=== PATIENT | male | born 1955 | race Caucasian/White ===

== ENCOUNTER 2020-06-10 17:20 | Outpatient (REF) | payer BC, SELFPAY | END 2020-06-10 17:21 | disposition home or self-care (01) | LOC: HO.LAB 17:20 | PROVIDERS: PCP Internal Medicine; Visit Provider Internal Medicine | DX: Z20.822 Contact with and (suspected) exposure to COVID-19 (principal); R09.89 Other specified symptoms and signs involving the circulatory and respiratory systems | CPT/HCPCS: 36415; U0003 ==

== ENCOUNTER 2021-06-09 09:17 | Outpatient (REF) | payer BC, SELFPAY ==
[2021-06-09 11:18] LABS: MANUAL DIFF FLAG NO
[2021-06-09 11:37] LABS: Basophils Percent Auto 0.3 % (0-2); Eosinophils Absolute Auto 0.1 X10*3/uL (0.0-0.4); Hematocrit 45.9 % (42.0-52.0); Hemoglobin 15.6 g/dl (14.0-18.0); Imm Gran Abs Auto 0.01 X10*3/uL (0.00-0.03); Imm Gran Pct Auto 0.1 % (0.0-0.4); Lymphocytes Absolute Auto 1.7 X10*3/uL (1.2-4.9); Lymphocytes Percent Auto 24.7 % (20-40); Mean Corpuscular Hemoglobin 32.4 pg (27.0-33.0); Mean Corpuscular Volume 95.4 fL (80.0-98.0); Mean Platelet Volume 10.5 fL (9.4-12.4); Monocytes Absolute Auto 0.7 X10*3/uL (0.1-1.2); Monocytes Percent Auto 10.3 % (2-11); Neutrophils Absolute Auto 4.4 x10*3/uL (2.0-8.3); Neutrophils Percent Auto 63.6 % (45-73); Platelet Count 258 X10*3/uL (160-400); Red Blood Count 4.81 X10*6/uL (4.60-5.80); Red Cell Distribution Width 11.6 % (11.0-16.0)
[2021-06-09 11:47] LABS: Alanine Aminotransferase 24 U/L (0-40); Albumin Level 4.2 g/dL (3.5-5.0); Alkaline Phosphatase 91 U/L (39-117); Anion Gap 11 (12-20); Aspartate Amino Transferase 21 U/L (5-37); Bilirubin Total 0.5 mg/dL (0.0-1.0); Blood Urea Nitrogen 12 mg/dL (9-16); Calcium 9.5 mg/dL (8.4-10.2); Carbon Dioxide 28 mmol/L (22-29); Chloride 104 mmol/L (96-108); Cholesterol 215 mg/dL; Estimated Glomerular Filt Rate > 60; Glucose Fasting 93 mg/dL (60-99); HDL Cholesterol 42 mg/dL; LDL Cholesterol Calculated 138 mg/dl; Potassium 4.2 mmol/L (3.3-5.1); Sodium 139 mmol/L (135-145); Triglycerides 176 mg/dL
[2021-06-09 12:13] LABS: Prostate Specific Antigen Scr 0.57 ng/mL (<0.05-4.0); Thyroid Stimulating Hormone 1.47 uIU/mL (0.32-4.0)
== END 2021-06-09 09:18 | disposition home or self-care (01) ==
LOC: HO.HMGCLDS 09:17
PROVIDERS: PCP Internal Medicine; Visit Provider Internal Medicine
DX: Z00.00 Encounter for general adult medical examination without abnormal findings (principal); Z13.0 Encounter for screening for diseases of the blood and blood-forming organs and certain disorders involving the immune mechanism; Z12.5 Encounter for screening for malignant neoplasm of prostate
CPT/HCPCS: 36415; 80053; 80061; 84153; 84443; 85025

== ENCOUNTER 2021-06-12 07:38 | Outpatient (REF) | payer BC, SELFPAY ==
--- NOTE | ~2021-06-12 | CT_ITS ---
EXAMINATION: CT HEAD WITHOUT CONTRAST CLINICAL INFORMATION: Amnesia. COMPARISON: None TECHNIQUE: Contiguous axial imaging was performed from the skull base to vertex without intravenous administration of contrast. This CT examination was performed using dose optimization techniques as appropriate, variously including the following: *Automated exposure control *Adjustment of mA and/or kV according to patient size (this includes techniques or standardized protocols for targeted exams where dose is matched to indication/reason for exam; i.e. extremities or head) *Use of iterative reconstruction technique DLP: 837 mGy-cm FINDINGS: There is no evidence of acute intracranial hemorrhage or territorial infarction. No abnormal mass effect or midline shift is seen. Leigh to white matter differentiation is well preserved. No extra-axial fluid collections are identified. The ventricles are normal in size. There is no abnormal attenuation within the brain parenchyma. The osseous structures and soft tissues are normal. The mastoid air cells and visualized portions of the paranasal sinuses are well aerated. CT/CT head/brain wo con IMPRESSION: No acute intracranial pathology.
== END 2021-06-12 07:39 | disposition home or self-care (01) ==
LOC: HO.CT 07:38
PROVIDERS: Visit Provider Internal Medicine
DX: R41.3 Other amnesia (principal)
CPT/HCPCS: 70450

== ENCOUNTER 2022-04-23 06:27 | Day surgery (SDC) | payer BC, SELFPAY ==
--- NOTE | 2022-04-20 10:54 | HO.ANESPROP2 ---
Documented by User: Miriam Wray NP 04/20/22 10:54 HPI - Anesthesia Eval Consult details Narrative: 66yo M for Colonoscopy PMFSH Active Problems Active Problems: All Active Problems (Updated 04/20/22 @ 10:46 by Farheen Baxter, GUEVARA) Memory loss (Acute) Lipoma (Acute) Hyperlipidemia (Acute) Hypertension (Acute) Past Medical History Medical History Eczema Hypertension Family History Family History Father Prostate cancer Mother Asthma Surgical History Surgical History H/O colonoscopy No pertinent past surgical history Social History Social History Housing: House Alcohol intake: never Patient Tobacco Use Status: Never used Tobacco e-Cigarette/Vaping Use: Never Used Second Hand Smoke Exposure: No Use of substances other than those prescribed or required for medical reasons: No Are you DNR?: No Advance Directives: No Advance Directives Information Provided: Yes service: No Current occupational status: retired Cognitive needs: No Hearing needs: No Vision needs: Yes Meds Allergies Allergy/AdvReac Type Severity Reaction Status Date / Time lisinopril Allergy Unknown face Verified 04/23/22 06:37 swelling Home Medications Medication Instructions Recorded Confirmed Last Taken Type dupilumab 300 mg/2 mL subcutaneous 300 mg subcut Q2W 05/03/20 04/23/22 Unknown History syringe (Dupixent) Exam Exam Date and Time: April 20, 2022 105 Assessment and Plan Assessment Anesthesia Assessment: Chart Reviewed Documented by User: Awilda Melvin MD 04/23/22 07:35 PMFSH Past Medical History Medical History Eczema Hypertension Family History Family History Father Prostate cancer Mother Asthma Surgical History Surgical History H/O colonoscopy No pertinent past surgical history History of Problems with Anesthesia: No Social History Social History Housing: House Alcohol intake: never Patient Tobacco Use Status: Never used Tobacco e-Cigarette/Vaping Use: Never Used Second Hand Smoke Exposure: No Use of substances other than those prescribed or required for medical reasons: No Are you DNR?: No Advance Directives: No Advance Directives Information Provided: Yes service: No Current occupational status: retired Cognitive needs: No Hearing needs: No Vision needs: Yes Meds Allergies Allergy/AdvReac Type Severity Reaction Status Date / Time lisinopril Allergy Unknown face Verified 04/23/22 06:37 swelling Home Medications Medication Instructions Recorded Confirmed Last Taken Type dupilumab 300 mg/2 mL subcutaneous 300 mg subcut Q2W 05/03/20 04/23/22 Unknown History syringe (Dup[employer]) Exam Airway Mallampati Class: II TM Dist: >3cm Neck ROM: Full Loose/Missing/Broken Teeth: No Heart: RRR Lungs: CTA Assessment and Plan Assessment Anesthesia Assessment: Anesthesia Plan Discussed Final Anesthetic Review History of Problems with Anesthesia: No NPO: Yes ASA Class: II Final Preanesthetic Review: Meds/Allgs Chart Reviewed, Consent Obtained/Reviewed and Anes Risks/Benef Reviewed Patient Risk: Low Procedure Risk: Low Anesthetic Plan Anesthetic Plan: MAC: Disposition: Standard PACU
[2022-04-23 06:35] VITALS: BMI 27.8
[2022-04-23 06:44] VITALS: BP 144/95; PULSE 61; RESP 16; TEMP 36.4; O2SAT 98
[2022-04-23] MEDS: Lactated Ringers 1,000 ML 100 ML IVCONT (06:53)
[2022-04-23 08:23] VITALS: BP 111/53; PULSE 52; RESP 20; TEMP 36.4; O2SAT 99
--- NOTE | 2022-04-23 08:26 | PM.OP ---
Brief Operative Note Date of Service: 04/23/22 Pre-op diagnosis: Screening Post-op diagnosis: other (Same, Diverticulosis) Procedure: Colonoscopy to the cecum and TI Surgeon: Isaac Grubbs Anesthesia: MAC Was an Executive Relations Specialist used for this Procedure?: No Estimated blood loss (mL): 0 Pathology: none sent Condition: stable Disposition: PACU
[2022-04-23 08:38] VITALS: BP 133/65; PULSE 55; RESP 18; TEMP 36.6; O2SAT 99
[2022-04-23 08:53] VITALS: BP 141/72; PULSE 50; RESP 18; TEMP 36.3; O2SAT 100
--- NOTE | 2022-04-23 09:14 | OP_ITS ---
SURGEON: Isaac Grubbs MD INDICATIONS: The patient presents for evaluation of colorectal cancer screening. Full consent has been obtained from him for this, including risks of bleeding and perforation. PREOPERATIVE DIAGNOSIS: Colorectal cancer screening. POSTOPERATIVE DIAGNOSIS: PROCEDURE PERFORMED: Colonoscopy to the cecum and terminal ileum. ESTIMATED BLOOD LOSS: COMPLICATIONS: ANESTHESIA: Monitored anesthesia care. ASSISTANTS: SPECIMENS: POSTOPERATIVE DIAGNOSES: Colorectal cancer screening, sigmoid diverticulosis, and small internal hemorrhoids. DESCRIPTION OF PROCEDURE: The patient was placed in the left lateral decubitus position. The digital rectal exam revealed no abnormalities. The Olympus video pediatric colonoscope was entered into the rectum and advanced easily to the cecum. Once in the cecum, I did identify normal-appearing cecal pouch with appendiceal orifice and a normal-appearing ileocecal valve. The terminal ileum was cannulated and appeared normal. The scope was withdrawn back in the colon. The entire cecum and ileocecal valve appeared normal. The scope was then slowly withdrawn assessing all mucosal surfaces carefully. Preparation was excellent. I did not visualize any sign of polyps, colitis, nor angiodysplasia. There was a mild amount of sigmoid diverticulosis. In the rectum, scope was retroflexed visualizing internal hemorrhoids, but no other pathology. The rectal mucosa appeared normal. The scope was straightened and withdrawn from the patient. He tolerated the procedure well and was returned to the recovery area in stable condition. IMPRESSION: 1. Mild sigmoid diverticulosis. 2. Small internal hemorrhoids. PLAN: Given today's negative exam, I would recommend a followup colonoscopy in 10 years for further screening. He will otherwise see me on a p.r.n. basis. MD LAM Ordonez/GLADYS / [id number]
== END 2022-04-23 09:23 | disposition home or self-care (01) ==
PROVIDERS: PCP Internal Medicine; Visit Provider Internal Medicine
PROC: 0DJD8ZZ Inspection of Lower Intestinal Tract, Via Natural or Artificial Opening Endoscopic (ICD-10-PCS; CPT 45378; principal; 2022-04-23 07:30)
DX: Z12.11 Encounter for screening for malignant neoplasm of colon (principal); K57.30 Diverticulosis of large intestine without perforation or abscess without bleeding; K64.8 Other hemorrhoids; L30.9 Dermatitis, unspecified; Z79.899 Other long term (current) drug therapy
CPT/HCPCS: 45378

== ENCOUNTER 2022-07-13 08:15 | Outpatient (REF) | payer BC, SELFPAY ==
[2022-07-13 10:34] LABS: MANUAL DIFF FLAG NO
[2022-07-13 10:45] LABS: Basophils Percent Auto 0.5 % (0-2); Eosinophils Absolute Auto 0.1 X10*3/uL (0.0-0.4); Eosinophils Percent Auto 0.9 % (0-4); Hematocrit 44.3 % (42.0-52.0); Hemoglobin 15.4 g/dl (14.0-18.0); Imm Gran Abs Auto 0.02 X10*3/uL (0.00-0.03); Imm Gran Pct Auto 0.2 % (0.0-0.4); Lymphocytes Absolute Auto 2.1 X10*3/uL (1.2-4.9); Lymphocytes Percent Auto 25.9 % (20-40); Mean Corpuscular HGB Conc 34.8 g/dl (31.0-36.0); Mean Corpuscular Hemoglobin 32.7 pg (27.0-33.0); Mean Corpuscular Volume 94.1 fL (80.0-98.0); Monocytes Absolute Auto 0.8 X10*3/uL (0.1-1.2); Monocytes Percent Auto 10.1 % (2-11); Neutrophils Absolute Auto 5.1 x10*3/uL (2.0-8.3); Neutrophils Percent Auto 62.4 % (45-73); Platelet Count 254 X10*3/uL (160-400); Red Blood Count 4.71 X10*6/uL (4.60-5.80); Red Cell Distribution Width 11.9 % (11.0-16.0); White Blood Count 8.2 X10*3/uL (4.8-10.8)
[2022-07-13 11:19] LABS: Alanine Aminotransferase 23 U/L (0-40); Albumin Level 3.9 g/dL (3.5-5.0); Alkaline Phosphatase 84 U/L (39-117); Anion Gap 10 (12-20); Aspartate Amino Transferase 19 U/L (5-37); Bilirubin Total 0.8 mg/dL (0.0-1.0); Blood Urea Nitrogen 14 mg/dL (9-16); Calcium 8.9 mg/dL (8.4-10.2); Carbon Dioxide 28 mmol/L (22-29); Chloride 107 mmol/L (96-108); Cholesterol 203 mg/dL; Estimated Glomerular Filt Rate > 60; Glucose Fasting 95 mg/dL (60-99); HDL Cholesterol 37 mg/dL; LDL Cholesterol Calculated 131 mg/dl; Sodium 141 mmol/L (135-145); Total Protein 6.5 g/dL (6.5-8.0); Triglycerides 178 mg/dL
[2022-07-13 11:22] LABS: Prostate Specific Antigen Scr 0.66 ng/mL (<0.05-4.0)
== END 2022-07-13 08:16 | disposition home or self-care (01) ==
LOC: HO.10HDL 08:15
PROVIDERS: Visit Provider Internal Medicine
DX: Z00.00 Encounter for general adult medical examination without abnormal findings (principal); E78.5 Hyperlipidemia, unspecified; N28.9 Disorder of kidney and ureter, unspecified; D64.9 Anemia, unspecified; Z12.5 Encounter for screening for malignant neoplasm of prostate
CPT/HCPCS: 36415; 80053; 80061; 84153; 85025

== ENCOUNTER → 2022-09-13 13:54 | Outpatient (BNVA) | payer BC, SELFPAY | PROVIDERS: PCP Internal Medicine; Referring Provider Internal Medicine; Visit Provider Internal Medicine Cardiovascular Disease | DX: R07.9 Chest pain, unspecified (principal); I44.7 Left bundle-branch block, unspecified | CPT/HCPCS: 93005 ==

== ENCOUNTER → 2022-10-04 09:49 | Outpatient (REF) | payer BC, SELFPAY ==
--- NOTE | ~2022-10-04 | NM_ITS ---
Myocardial perfusion study Indication: Chest pain to evaluate for myocardial ischemia Technique: The patient was brought in for a Lexiscan perfusion study on 10/04/2022. Patient performed low-level exercise and was injected 0.4 mg of Lexiscan intravenously. Within a minute of injection, 30 mCi of sestamibi was given intravenously. Images were obtained using the SPECT gamma camera interlaced with the gating device. Images were obtained in supine position. Resting perfusion study was performed on 10/05/2022. Patient was administered 30 mCi of sestamibi intravenously at rest. Images were then obtained in supine position. Images obtained with and without CT attenuation. Total DLP 84 mGy-cm. Images were processed with the software and compared side to side in short axis, horizontal long axis and vertical long axis views. Findings: The stress perfusion study showed non attenuated images show mildly reduced uptake in the septum of the LV myocardium. Remainder of the LV myocardium is normally perfused. Attenuation corrected images show mildly to moderately reduced uptake in the septum and mildly reduced uptake in the apex of the LV myocardium.. The gated study shows normal LV systolic function with calculated LVEF of 53%. LV cavity is normal in size. The gated study shows normal systolic wall thickening and contraction of segments. Resting study shows no change in perfusion pattern compared to stress perfusion study. Gating at rest reveals normal systolic wall motion with ejection fraction at 58%. The findings are consistent with no clear reversible defect suggestive of ischemia. Most suggestive attenuation artifact from subdiaphragmatic uptake interfering with inferior wall uptake. NM/NM abraham perf SPECT rest & str Impression: 1. Myocardial perfusion imaging study shows likely normal myocardial perfusion 2. Gated LVEF is 58% 3. Transient ischemic dilatation not present EKG is nondiagnostic for ischemia
--- NOTE | 2022-10-04 09:58 | CA_ITS ---
Acquisition Time: 2022-10-04 10:30:53 Total Exercise Time: 00:02:00 Test Indications: CP Medications: DUPEXENT SILDENAFIL Protocol: LEXISCAN Max HR: 100 BPM 64% of Pred: 155 BPM Max BP: 162/090 mmHG Max Work Load: 1.0 METS Pharmacological stress test with Lexiscan injection, while sitting and briefly kicking his legs , without anginal symptoms, with devleopment of LBBB around heart rate of 70 b/min, with normotensive response to injection, with nondiagnostic EKG for ischemia. Nuclear images pending. Test reviewed with Dr Liang . Referred By: Kyle Jacobo Overread By: AMBAR BARKER
== END ==
LOC: HO.CARD 09:49
PROVIDERS: PCP Internal Medicine; Visit Provider Internal Medicine Cardiovascular Disease
DX: R07.9 Chest pain, unspecified (principal)
CPT/HCPCS: 78452; 93017; A9500; J0280; J2785

== ENCOUNTER → 2022-11-06 14:44 | Outpatient (BNVA) | payer BC, SELFPAY | PROVIDERS: PCP Internal Medicine; Referring Provider Internal Medicine; Visit Provider Internal Medicine Cardiovascular Disease ==

== ENCOUNTER 2022-12-13 14:03 | Outpatient (AMB) | payer BC, SELFPAY ==
[2022-12-13 14:13] VITALS: BP 138/86; PULSE 68; O2SAT 98; BMI 27.8
--- NOTE | 2022-12-13 14:13 | A.OFFPC_ITS ---
Vital Signs 12/13/22 14:13 Height 5 ft 8 in Weight 183 lb BMI 27.8 BP 138/86 Blood Pressure Location Lt brachial Position Sitting Pulse 68 Pulse Source Pulse Oximeter Pulse Oximetry (%) 98 Oxygen Delivery Method Room Air Intake Visit Reasons: 5mth f/u Allergies lisinopril Allergy (Unknown, Verified 12/13/22 14:14) face swelling Tobacco use date assessed: 12/13/22 Fall risk assessment: No Falls in past year Last assessed Fall Risk: 12/13/22 Dental Screening Dental Screen Date: 12/13/22 Did you have a dental visit in the last 12 months?: Yes Did you have a dental problem in the last 6 months where you did not have access to dental care?: No Was dental information given to patient?: Patient has dentist HPI 5mth f/u HPI Details hyperlip on rx; seeing card re [facility] Medical History Eczema Hypertension Surgical History H/O colonoscopy No pertinent past surgical history Family History Father Prostate cancer Mother Asthma Social History Housing: House Alcohol intake: never Patient Tobacco Use Status: Never used Tobacco e-Cigarette/Vaping Use: Never Used Second Hand Smoke Exposure: No service: No Current occupational status: retired Cognitive needs: No Hearing needs: No Vision needs: Yes Questionnaire PHQ-9 Over the last 2 weeks, how often have you been bothered by any of the following problems? Depression Screening Interpretation: Negative Source: Developed by Drs. Isaac Clark, Zena Larson, Carmelo Bah and colleagues, with an educational maggie from [employer]. Thrive Questionnaire Date Thrive assessed: 05/31/22 Currently or been in a relationship where the following occur: no concerns reported AUDIT C Alcohol Use Questionnaire (AUDIT-C) 1. How often do you have a drink containing alcohol?: Never Total Score: 0 Score Reviewed/Action Taken: Yes MARIBELL-7 AMB Questionnaire MARIBELL-7 Date MARIBELL - 7 assessed: 05/31/22 Source: Developed by Drs. Isaac Clark, Zena Larson, Carmelo Bah and colleagues, with an educational maggie from [employer]. Review of Systems Const Denies chills, Denies headache(s) and Denies weight loss ENT Denies headache(s) Card Denies chest pain, Denies syncope, Denies irregular heart rhythm and Denies dyspnea Resp Denies chest congestion, Denies cough and Denies dyspnea GI Denies abdominal pain, Denies change in stool character, Denies nausea and Denies vomiting Musc Denies deformity and Denies joint swelling Neuro Denies syncope and Denies headache(s) Physical exam (Primary Care) Vital Signs: Last Vital Signs Pulse 68 12/13/22 14:13 BP 138/86 12/13/22 14:13 Pulse Ox 98 12/13/22 14:13 Oxygen Delivery Method Room Air 12/13/22 14:13 BMI result Body Mass Index 27.8 Tobacco/Smoking Status: Tobacco use Status Tobacco use date assessed 12/13/22 12/13/22 14:17 Patient Tobacco Use Status Never used Tobacco 12/13/22 14:14 e-Cigarette/Vaping Use Never Used 12/13/22 14:14 Depression Screening Interpretation: Negative Thrive Assessment: Date of Thrive Assessment Date Thrive assessed 05/31/22 12/13/22 14:14 Currently or been in a relationship where the following occur: no concerns reported Const General: cooperative, healthy appearing and comfortable Resp Effort & Inspection: normal respiratory effort Auscultation: clear to auscultation bilaterally Percussion: percussion normal Cardio Jugular venous distension: no JVD Rate: regular rate Rhythm: regular rhythm GI Inspection: Yes normal to inspection Assessment and Plan Assessment & Plan (1) Hyperlipidemia: Code(s): E78.5 - Hyperlipidemia, unspecified Plan: stable; same rx Coding Level of Care Code Est Pt Level 3 (64170) Diagnoses Hyperlipidemia E78.5
== END 2022-12-13 14:40 | disposition home or self-care (01) ==
PROVIDERS: PCP Internal Medicine; Visit Provider Internal Medicine
DX: E78.5 Hyperlipidemia, unspecified (principal)
CPT/HCPCS: 99213

== ENCOUNTER → 2022-12-31 14:46 | Outpatient (REF) | payer BC, SELFPAY ==
--- NOTE | 2022-12-31 14:49 | CA_ITS ---
Transthoracic Echocardiogram Patient (Last, First, Middle): Manny Granado, Gender: Male Date of : 1955 Age: 67 Procedure Date: 12/31/2022 Procedure Type: Transthoracic Echocardiogram Location: OP Height: 172.72 cm Weight: 81.65 kg BSA: 1.95 m2 Heart Rate: 60 bpm BP: 154 / 80 mmHg Dispatcher Radioactive Waste Disposal: RONAL Referring MD: Kyle Jacobo MD Rental Car Deliverer: Kyle Jacobo MD Symptoms: I44.7 - Left bundle-branch block, unspecified Study Quality: Adequate w contrast ECG Rhythm: Sinus Conclusions: - 1. Normal LV systolic function with impaired relaxation filling pattern 2. Trace aortic regurgitation 3. Mildly dilated ascending aorta at 3.8 cm 4. Normal RV systolic pressure 5. No gross pericardial effusion Findings Procedure Information Contrast agent, definity, is being given per protocol without apparent complications. Left Ventricle Normal left ventricular size, thickness, and systolic function. The visually estimated ejection fraction is between 65-70%. There is paradoxical septal motion consistent with a left bundle branch block. Spectral Doppler is indicative of an impaired relaxation filling pattern. E/E prime ratio is between 8 and 15 consistent with indeterminate filling pressures. Right Ventricle Normal right ventricular cavity size and systolic function. Atria Both atria are normal in size. There is lipomatous hypertrophy of the interatrial septum. There is no evidence of interatrial shunt. Aortic Valve The aortic valve structure and function is likely normal. There is mild calcification of the aortic valve. There is no aortic valve stenosis. There is trace (trivial) aortic valve regurgitation. Mitral Valve Normal mitral valve structure and function. There is trace mitral valve regurgitation. There is no mitral valve stenosis. Pulmonic Valve The pulmonic valve is likely normal. There is trace pulmonic valve regurgitation. Tricuspid Valve Normal tricuspid valve structure. There is trace tricuspid valve regurgitation. The right ventricular systolic pressure is normal. The right ventricular systolic pressure is 25 mmHg. Normal right atrial pressure. There is no evidence of pulmonary hypertension. Great Vessels The pulmonary artery was not well visualized. There is mild dilatation of the ascending aorta measuring 3.80 cm. Venous The inferior vena cava is normal in size and collapses greater than 50% with inspiration. Pericardium/Pleural There is no evidence of pericardial effusion. Prior Study Comparison No prior study available for comparison. Measurements 2D Linear Measurements IVSd: 1.21 0.6-0.9/0.6-1.0 cm LVIDd: 4.79 3.9-5.3/4.2-5.9 cm LVIDd Index: 2.46 2.4-3.2/2.2-3.1 cm/m2 LVIDs: 3.40 2.0-3.6 cm LVPWd: 0.82 0.7-1.1 cm LA Diam: 3.20 2.7-3.8/3.0-4.0 cm LAIDs Index: 1.64 1.5-2.3 cm/m2 LV Mass: 215.17 67-162/88-224 g LV Mass Index: 110.34 43-95/49-115 g/m2 LVOT Diam: 1.80 3.0+(-)1.3 cm 2D Systolic Function EF 4C: 64.30 >55% EF 2C: 77.70 >55% EF BiP: 71.50 >55% Mitral Valve MV Pk E: 0.89 MV PK A: 0.91 MV Decel Time: 237.00 E/A: 1.00 E'Lateral: 6.85 E'Medial: 4.90 E/E' Med: 18.20 E/E' Lat: 13.00 PHT: 69.00 MVA PHT: 3.19 Decel Bucks: 3.76 Aortic Valve AoV Pk Robinson: 1.82 AoV Mn Robinson: 1.25 AoV VTI: 0.39 AoV Pk Grad: 13.00 Aov Mn Grad: 7.00 KOLBY Cont.VTI: 1.76 LVOT LVOT Pk Robinson: 1.20 LVOT Mn Robinson: 0.86 LVOT VTI: 0.27 LVOT Pk Grad: 6.00 LVOT Mn Grad: 3.00 LVOT Diam: 1.80 LVOT Area: 2.54 Diastolic Function MV Pk E: 0.89 MV Pk A: 0.91 E/A: 1.00 E'Medial: 4.90 E/E' Med: 18.20 E' Laterial: 6.85 E/E' Lat: 13.00 Right Ventricle TAPSE (mm): 21.20 TVS' Robinson: 11.10 Tricuspid Valve TR Pk Robinson: 2.35 TR Pk Grad: 22.00 RA Press: 3.00 RVSP: 25.00 Great Vessels Aorta Sinus of Valsalva: 3.40 2.0-3.5 cm Ao Asc: 3.80 2.1-3.4 cm Pulmonary Veins Pulm Vein S/D 1.40 Pulmonary Valve PV Pk Robinson: 1.14 Peak PV Grad: 5.00 Updated in Other Vendor System with Status of Final Kyle Jacobo MD electronically signed on 12/31/2022 4:16:41 PM with status of Final
--- NOTE | 2022-12-31 14:49 | HM_ITS ---
Conclusion: 1. Patient was monitored for total period of 3 days 2. Baseline rhythm is normal sinus with average heart of 67 beats per minute 3. No significant pauses noted 4. Rare ectopy noted 5. No patient reported events MTDD
== END ==
LOC: HO.CARD 14:46
PROVIDERS: PCP Internal Medicine; Visit Provider Internal Medicine Cardiovascular Disease
DX: I44.7 Left bundle-branch block, unspecified (principal)
CPT/HCPCS: 93242; 93306; Q9957

== ENCOUNTER → 2022-12-31 14:49 | Outpatient (BNV) | payer BC, SELFPAY | PROVIDERS: PCP Internal Medicine; Visit Provider Internal Medicine Cardiovascular Disease | DX: I44.7 Left bundle-branch block, unspecified (principal); R07.9 Chest pain, unspecified | CPT/HCPCS: 93244; 93306 ==

== ENCOUNTER 2023-01-16 11:06 | Outpatient (AMB) | payer BC, SELFPAY ==
[2023-01-16 11:09] VITALS: BP 140/80; PULSE 66; BMI 27.5
--- NOTE | 2023-01-16 11:09 | MHC.OFFVIS ---
Intake Vital Signs 01/16/23 11:09 Height 5 ft 8 in Weight 180 lb 12.465 oz BMI 27.5 BP 140/80 H Blood Pressure Location Lt brachial Position Sitting Pulse 66 Intake Visit Reasons: 2 mth f/up testing calcium score Intake Note: 2 month follow-up with calcium score, echo and holter results Allergies lisinopril Allergy (Unknown, Verified 12/13/22 14:14) face swelling HPI HPI Comments History of Present Illness Details Manny comes for follow-up. Recent coronary calcium score shows presence of coronary calcium LAD and RCA territory suggestive underlying coronary artery disease. He has no new cardiac symptoms at current point time. Echocardiogram shows mild thoracic aortic enlargement at 3.8 cm. He is taking all his medication tolerating atorvastatin therapy. Denies any exertional chest pain or shortness of breath. PFSH Medical History Eczema Hypertension Surgical History H/O colonoscopy No pertinent past surgical history Family History Father Prostate cancer Mother Asthma Social History Housing: House Alcohol intake: never Patient Tobacco Use Status: Never used Tobacco e-Cigarette/Vaping Use: Never Used Second Hand Smoke Exposure: No service: No Current occupational status: retired Cognitive needs: No Hearing needs: No Vision needs: Yes Review of Systems Const Denies chills, Denies fatigue, Denies fever(s), Denies frequent falls, Denies weakness, Denies weight gain and Denies weight loss ENT Denies dizziness Card Denies chest pain, Denies leg edema, Denies lightheadedness, Denies palpitations, Denies dyspnea, Denies dyspnea on exertion, Denies orthopnea and Denies other (loss of consciousness) Resp Denies cough, Denies dyspnea and Denies dyspnea on exertion GI Denies hematochezia and Denies change in stool character Musc Denies abnormal gait, Denies muscle weakness, Denies numbness, Denies radiating pain into limb and Denies tingling Neuro Denies Abnormal speech present, Denies abnormal gait, Denies dizziness, Denies frequent falls, Denies numbness, Denies tingling and Denies weakness Endo Denies fatigue and Denies palpitations Physical Exam Vital Signs: Last Vital Signs Pulse 66 01/16/23 11:09 BP 140/80 H 01/16/23 11:09 BMI result Body Mass Index 27.5 Const General: cooperative, comfortable, no acute distress, well developed, alert, awake, Physically active and well groomed Nutritional Appearance: well nourished and overweight Orientation/consciousness: patient oriented x3 Limitations: no limitations Neck Neck: Yes trachea midline, Yes supple and Yes no JVD Resp Effort & Inspection: normal respiratory effort Auscultation: clear to auscultation bilaterally Cardio Jugular venous distension: no JVD Palpation: normal PMI Rate: regular rate Rhythm: regular rhythm Heart sounds: S1 normal heart sound present, S2 normal heart sound present, no click, no gallops, no murmurs and no rubs GI Auscultation: normal bowel sounds Neuro General: patient oriented x3 and no focal motor deficits Speech: No Abnormal speech present Psych Appearance: grossly normal Assessment & Plan Assessment & Plan (1) CAD (coronary artery disease): Code(s): I25.10 - Atherosclerotic heart disease of [place] coronary artery without angina pectoris Plan: CAD based of coronary calcium score. No symptoms related to it. Stress test was within normal limits. Echocardiogram shows normal LV systolic function. At this point in time continue with aggressive risk factor modification. Goal LDL less than 70 mg/dL. Advise lipid panel near future. Continue participate in regular physical activity and exercise program. Advised to call me with any new symptoms. (2) Enlarged thoracic aorta: Code(s): I77.89 - Other specified disorders of arteries and arterioles Plan: And last thoracic aorta also most likely suggestive atherosclerotic disease. Aggressive risk factor modifications above. We discussed management of her enlarged thoracic aorta. Follow-up echocardiogram in 1 year's time. Advised to avoid sudden strenuous isometric exercise. Manage blood pressure with goal blood pressure less than 130/84. He says that he also strong family history of abdominal aortic aneurysm in his father, will schedule him for abdominal ultrasound for ruling out abdominal aortic aneurysm. Follow up in the clinic 1 year's time, sooner p.r.n.. Thank you for allowing me to partake in his care Orders: Orders Lipid Panel Today I25.10 - Atherosclerotic heart disease of [place] coronary artery without angina pectoris Coding Level of Care Code Est Pt Level 4 (90373) Diagnoses CAD (coronary artery disease) I25.10 Enlarged thoracic aorta I77.89
== END 2023-01-16 11:30 | disposition home or self-care (01) ==
PROVIDERS: PCP Internal Medicine; Referring Provider Internal Medicine; Visit Provider Internal Medicine Cardiovascular Disease
DX: I25.10 Atherosclerotic heart disease of native coronary artery without angina pectoris (principal); I77.89 Other specified disorders of arteries and arterioles
CPT/HCPCS: 99214

== ENCOUNTER → 2023-01-16 11:06 | Outpatient (BNVA) | payer BC, SELFPAY | PROVIDERS: PCP Internal Medicine; Referring Provider Internal Medicine; Visit Provider Internal Medicine Cardiovascular Disease ==

== ENCOUNTER 2023-01-31 14:59 | Outpatient (REF) | payer BC, SELFPAY ==
--- NOTE | ~2023-01-31 | US_ITS ---
EXAMINATION: US RETROPERITONEAL LIMITED (AORTA) CLINICAL INFORMATION: Atherosclerotic heart disease of [place] coronary artery without angina pectoris. COMPARISON: None available. TECHNIQUE: Leigh-scale, color Doppler and spectral Doppler evaluation of the abdominal aorta. FINDINGS: The aorta is normal in caliber. The measurements of the aorta in maximum AP and transverse dimensions respectively are as follows: Proximal: 2.6 x 3.0 cm. Mid: 1.8 x 1.7 cm. Distal: 1.7 x 1.8 cm. PSV: 162 cm/s. The measurements of the common iliac arteries in maximum AP and TRV dimensions are as follows: Right Common Iliac Artery: 1.4 x 1.4 cm. Left Common Iliac Artery: 1.2 x 1.2 cm. US/US abdominal aortic aneurysm IMPRESSION: Negative for abdominal aortic aneurysm.
== END 2023-01-31 15:00 | disposition home or self-care (01) ==
LOC: HO.US 14:59
PROVIDERS: Visit Provider Internal Medicine Cardiovascular Disease
DX: I25.10 Atherosclerotic heart disease of native coronary artery without angina pectoris (principal)
CPT/HCPCS: 76706

== ENCOUNTER 2023-03-22 09:04 | Outpatient (REF) | payer BC, SELFPAY ==
[2023-03-22 11:00] LABS: Cholesterol 133 mg/dL (<200); HDL Cholesterol 40 mg/dL (>40); LDL Cholesterol Calculated 68 mg/dL (<100); Triglycerides 128 mg/dL (<150)
== END 2023-03-22 09:05 | disposition home or self-care (01) ==
LOC: HO.10HDL 09:04
PROVIDERS: Visit Provider Internal Medicine Cardiovascular Disease
DX: R07.9 Chest pain, unspecified (principal); E78.5 Hyperlipidemia, unspecified
CPT/HCPCS: 36415; 80061

== ENCOUNTER 2023-05-08 13:22 | Outpatient (AMB) | payer BC, SELFPAY ==
[2023-05-08 13:23] VITALS: BP 140/82; PULSE 60; O2SAT 98; BMI 28.0
--- NOTE | 2023-05-08 13:23 | MHC.PC.OV ---
Vital Signs 05/08/23 13:23 Height 5 ft 8 in Weight 184 lb BMI 28.0 BP 140/82 H Blood Pressure Location Lt brachial Position Sitting Pulse 60 Pulse Source Pulse Oximeter Pulse Oximetry (%) 98 Oxygen Delivery Method Room Air Intake Visit Reasons: 6 month f/u Sales Associate Required: No Systems Security Consultant: Not Required per policy Accompanied by: Self / Same As Patient Allergies lisinopril Allergy (Unknown, Verified 05/08/23 13:24) face swelling Medication List - Last Reconciled 05/08/23 by Atif Cueto MD atorvastatin 20 mg PO DAILY dupilumab (Dupixent) 300 mg subcut Q2W Tobacco use date assessed: 12/13/22 Fall risk assessment: No Falls in past year Last assessed Fall Risk: 05/08/23 Dental Screening Dental Screen Date: 05/08/23 Did you have a dental visit in the last 12 months?: Yes Did you have a dental problem in the last 6 months where you did not have access to dental care?: No Was dental information given to patient?: Patient has dentist HPI 6 month f/u HPI Details HTN on Rx; doing well PFSH Medical History Eczema Hypertension Surgical History H/O colonoscopy No pertinent past surgical history Family History Father Prostate cancer Mother Asthma Social History Housing: House Alcohol intake: never Patient Tobacco Use Status: Never used Tobacco e-Cigarette/Vaping Use: Never Used Second Hand Smoke Exposure: No service: No Current occupational status: retired Cognitive needs: No Hearing needs: No Vision needs: Yes Questionnaire Thrive Questionnaire Date Thrive assessed: 05/31/22 MARIBELL-7 AMB Questionnaire MARIBELL-7 Date MARIBELL - 7 assessed: 05/31/22 Source: Developed by Drs. Isaac Clark, Zena Larson, Carmelo Bah and colleagues, with an educational maggie from [employer]. Review of Systems Const Denies chills, Denies headache(s) and Denies weight loss ENT Denies headache(s) Card Denies chest pain, Denies syncope, Denies irregular heart rhythm and Denies dyspnea Resp Denies chest congestion, Denies cough and Denies dyspnea GI Denies abdominal pain, Denies change in stool character, Denies nausea and Denies vomiting Musc Denies deformity and Denies joint swelling Neuro Denies syncope and Denies headache(s) Physical exam (Primary Care) Vital Signs: Last Vital Signs Pulse 60 05/08/23 13:23 BP 140/82 H 05/08/23 13:23 Pulse Ox 98 05/08/23 13:23 Oxygen Delivery Method Room Air 05/08/23 13:23 BMI result Body Mass Index 28.0 Tobacco/Smoking Status: Tobacco use Status Tobacco use date assessed 12/13/22 05/08/23 13:29 Patient Tobacco Use Status Never used Tobacco 05/08/23 13:29 e-Cigarette/Vaping Use Never Used 05/08/23 13:29 Thrive Assessment: Date of Thrive Assessment Date Thrive assessed 05/31/22 05/08/23 13:29 Const General: cooperative, comfortable, no acute distress and alert Neck Neck: Yes no lymphadenopathy Thyroid: Thyroid normal Resp Effort & Inspection: normal respiratory effort Auscultation: clear to auscultation bilaterally Percussion: percussion normal Cardio Jugular venous distension: no JVD Palpation: normal PMI Rate: regular rate Rhythm: regular rhythm Heart sounds: S1 normal heart sound present and S2 normal heart sound present GI Inspection: Yes normal to inspection Palpation (GI): No hepatosplenomegaly present Skin General skin exam: no rashes or lesions noted Extrem General: Yes no clubbing, cyanosis or edema Assessment and Plan Assessment & Plan (1) Hypertension: Code(s): I10 - Essential (primary) hypertension Plan: stable; same rx Orders: Orders Complete Blood Count Auto Diff Today D64.9 - Anemia, unspecified Lipid Panel Today E78.5 - Hyperlipidemia, unspecified Thyroid Stimulating Hormone Today E03.9 - Hypothyroidism, unspecified Comprehensive [place]. Panel Fast Today N28.9 - Disorder of kidney and ureter, unspecified Prostate Specific Antigen Scr Today Z00.00 - Encounter for general adult medical examination without abnormal findings Coding Level of Care Code Est Pt Level 3 (56576) Diagnoses Hypertension I10
== END 2023-05-08 14:29 | disposition home or self-care (01) ==
PROVIDERS: PCP Internal Medicine; Visit Provider Internal Medicine
DX: I10 Essential (primary) hypertension (principal)
CPT/HCPCS: 99213

== ENCOUNTER 2023-09-02 12:35 | Outpatient (REF) | payer MEDICARE, SELFPAY ==
[2023-09-02 12:54] LABS: MANUAL DIFF FLAG NO
[2023-09-02 13:09] LABS: Basophils Percent Auto 0.4 % (0-2); Eosinophils Absolute Auto 0.1 X10*3/uL (0.0-0.4); Eosinophils Percent Auto 0.7 % (0-4); Hematocrit 42.2 % (42.0-52.0); Hemoglobin 15.2 g/dl (14.0-18.0); Imm Gran Abs Auto 0.01 X10*3/uL (0.00-0.03); Imm Gran Pct Auto 0.1 % (0.0-0.4); Lymphocytes Percent Auto 30.4 % (20-40); Mean Corpuscular Hemoglobin 33.5 pg (27.0-33.0); Mean Platelet Volume 9.9 fL (9.4-12.4); Monocytes Absolute Auto 0.7 X10*3/uL (0.1-1.2); Monocytes Percent Auto 10.5 % (2-11); Neutrophils Absolute Auto 3.9 x10*3/uL (2.0-8.3); Neutrophils Percent Auto 57.9 % (45-73); Platelet Count 226 X10*3/uL (160-400); Red Blood Count 4.54 X10*6/uL (4.60-5.80); Red Cell Distribution Width 11.9 % (11.0-16.0); White Blood Count 6.7 X10*3/uL (4.8-10.8)
[2023-09-02 13:49] LABS: Alanine Aminotransferase 21 U/L (0-40); Alkaline Phosphatase 83 U/L (39-117); Anion Gap 9 (12-20); Aspartate Amino Transferase 18 U/L (5-37); Bilirubin Total 0.7 mg/dL (0.0-1.0); Blood Urea Nitrogen 13 mg/dL (9-16); Calcium 9.3 mg/dL (8.4-10.2); Carbon Dioxide 27 mmol/L (22-29); Chloride 108 mmol/L (96-108); Cholesterol 135 mg/dL (<200); Estimated Glomerular Filt Rate > 60; Glucose Fasting 91 mg/dL (60-99); HDL Cholesterol 43 mg/dL (>40); LDL Cholesterol Calculated 66 mg/dL (<100); Potassium 4.1 mmol/L (3.3-5.1); Sodium 140 mmol/L (135-145); Total Protein 6.8 g/dL (6.5-8.0); Triglycerides 133 mg/dL (<150)
[2023-09-02 14:03] LABS: Prostate Specific Antigen Scr 0.61 ng/mL (<0.05-4.0)
[2023-09-02 14:04] LABS: Thyroid Stimulating Hormone 1.06 uIU/mL (0.32-4.0)
== END 2023-09-02 12:36 | disposition home or self-care (01) ==
LOC: HO.LAB 12:35
PROVIDERS: PCP Internal Medicine; Visit Provider Internal Medicine
DX: Z00.00 Encounter for general adult medical examination without abnormal findings (principal); E03.9 Hypothyroidism, unspecified; E78.5 Hyperlipidemia, unspecified; N28.9 Disorder of kidney and ureter, unspecified; D64.9 Anemia, unspecified; Z12.5 Encounter for screening for malignant neoplasm of prostate
CPT/HCPCS: 36415; 80053; 80061; 84153; 84443; 85025

== ENCOUNTER 2023-09-09 14:09 | Outpatient (AMB) | payer OTHER, SELFPAY ==
[2023-09-09 14:16] VITALS: BP 152/98; PULSE 68; O2SAT 98; BMI 28.3
--- NOTE | 2023-09-09 14:16 | MHC.PC.OV ---
Vital Signs 09/09/23 14:16 Height 5 ft 8 in Weight 186 lb BMI 28.3 BP 152/98 H Blood Pressure Location Lt brachial Position Sitting Pulse 68 Pulse Source Pulse Oximeter Pulse Oximetry (%) 98 Oxygen Delivery Method Room Air Intake Visit Reasons: 3mth f/u Tar And Ammonia Pump Operator Required: No Casket Coverer: Not Required per policy Accompanied by: Self / Same As Patient Allergies lisinopril Allergy (Unknown, Verified 09/09/23 14:16) face swelling Medication List - Last Reconciled 09/10/23 by Atif Cueto MD amlodipine 5 mg PO DAILY atorvastatin 20 mg PO DAILY dupilumab (Dupixent) 300 mg subcut Q2W Tobacco use date assessed: 09/09/23 Fall risk assessment: No Falls in past year Last assessed Fall Risk: 09/09/23 Dental Screening Dental Screen Date: 09/09/23 Did you have a dental visit in the last 12 months?: Yes Did you have a dental problem in the last 6 months where you did not have access to dental care?: No Was dental information given to patient?: Patient has dentist HPI 3mth f/u HPI Details HTN on Rx; BP has been 150s lately PFSH Medical History Eczema Hypertension Surgical History H/O colonoscopy No pertinent past surgical history Family History (Updated 09/09/23 @ 14:22 by CHELSEA Mitchell) Father Prostate cancer Mother Asthma Social History Housing: House Alcohol intake: never Patient Tobacco Use Status: Never used Tobacco e-Cigarette/Vaping Use: Never Used Second Hand Smoke Exposure: No service: No Current occupational status: retired Cognitive needs: No Hearing needs: No Vision needs: Yes Questionnaire PHQ-9 Over the last 2 weeks, how often have you been bothered by any of the following problems? 1. Little interest or pleasure in doing things: not at all 2. Feeling down, depressed, or hopeless: not at all 3. Trouble falling or staying asleep, or sleeping too much: not at all 4. Feeling tired or having little energy: not at all 5. Poor appetite or overeating: not at all 6. Feeling bad about yourself - or that you are a failure or have let yourself or your family down: not at all 7. Trouble concentrating on things, such as reading the newspaper or watching television: not at all 8. Moving or speaking so slowly that other people could have noticed. Or the opposite - being so fidgety or restless that you have been moving around a lot more than usual: not at all 9. Thoughts that you would be better off or of hurting yourself in some way: not at all Total score: 0 Depression Screening Interpretation: Negative Depression Screening Done: Yes 54285 - PHQ-9 Billing: Yes Source: Developed by Drs. Isaac Clark, Zena Larson, Carmelo Bah and colleagues, with an educational maggie from [employer]. Thrive Questionnaire Date Thrive assessed: 09/09/23 I am a: Patient What is your living situation today?: I have a steady place to live Within the past 12 months, did the food you bought not last and you didn't have the money to get more?: Never true Within the past 12 months, did you worry whether your food would run out before you got money to buy more?: Never true Do you have trouble paying for medicines?: No Do you have trouble getting transportation to medical appointments?: No Do you have trouble paying your heating and electricity bill?: No Do you have trouble taking care of your child, family member or friend?: No Do you have trouble with day-to-day activities such as bathing, preparing meals, shopping, managing finances, etc.?: No Are you currently unemployed and looking for a job?: No Are you interested in more education?: No Please select the resources that you would like help with: None THRIVE Score: 0 AUDIT C Alcohol Use Questionnaire (AUDIT-C) 1. How often do you have a drink containing alcohol?: Never Total Score: 0 Score Reviewed/Action Taken: Yes MARIBELL-7 AMB Questionnaire MARIBELL-7 Date MARIBELL - 7 assessed: 09/09/23 Feeling nervous, anxious, or on edge: 0 = Not at all Not being able to stop or control worryin = Not at all Worrying too much about different things: 0 = Not at all Trouble relaxin = Not at all Being so restless that it is hard to sit still: 0 = Not at all Becoming easily annoyed or irritable: 0 = Not at all Feeling afraid as if something awful might happen: 0 = Not at all Total MARIBELL-7 score (0-4 normal; 5-9 mild; 10-14 moderate; 15-21 severe): 0 Source: Developed by Drs. Isaac Clark, Zena Larson, Carmelo Bah and colleagues, with an educational maggie from [employer]. MARIBELL-7 Assessment Billing MARIBELL-7 Assessment Tool: MARIBELL-7 Assessment 94684 Review of Systems Const Denies chills, Denies headache(s) and Denies weight loss ENT Denies headache(s) Card Denies chest pain, Denies syncope, Denies irregular heart rhythm and Denies dyspnea Resp Denies chest congestion, Denies cough and Denies dyspnea GI Denies abdominal pain, Denies change in stool character, Denies nausea and Denies vomiting Musc Denies deformity and Denies joint swelling Neuro Denies syncope and Denies headache(s) Physical exam (Primary Care) Vital Signs: Last Vital Signs Pulse 68 09/09/23 14:16 BP 152/98 H 09/09/23 14:16 Pulse Ox 98 09/09/23 14:16 Oxygen Delivery Method Room Air 09/09/23 14:16 BMI result Body Mass Index 28.3 Tobacco/Smoking Status: Tobacco use Status Tobacco use date assessed 09/09/23 09/09/23 14:18 Patient Tobacco Use Status Never used Tobacco 09/09/23 14:18 e-Cigarette/Vaping Use Never Used 09/09/23 14:18 PHQ-9: PHQ-9 Score PHQ-9: Total score 0 09/09/23 14:18 Depression Screening Interpretation: Negative Thrive Assessment: Date of Thrive Assessment Date Thrive assessed 09/09/23 09/09/23 14:18 Const General: cooperative, comfortable, no acute distress and alert Neck Neck: Yes no lymphadenopathy Thyroid: Thyroid normal Resp Effort & Inspection: normal respiratory effort Auscultation: clear to auscultation bilaterally Percussion: percussion normal Cardio Jugular venous distension: no JVD Palpation: normal PMI Rate: regular rate Rhythm: regular rhythm Heart sounds: S1 normal heart sound present and S2 normal heart sound present GI Inspection: Yes normal to inspection Palpation (GI): No hepatosplenomegaly present Skin General skin exam: no rashes or lesions noted Extrem General: Yes no clubbing, cyanosis or edema Assessment and Plan Assessment & Plan (1) Hypertension: Code(s): I10 - Essential (primary) hypertension Plan: was on rx in the past; will reume rx now Medications: New amlodipine 5 mg PO DAILY 30 tabs 5RF Coding Level of Care Code Est Pt Level 3 (22197) Diagnoses Hypertension I10 Additional Codes MARIBELL-7 Assessment Billing - MARIBELL-7 Assessment Tool: MARIBELL-7 Assessment 09262 ([id number])
== END 2023-09-09 15:35 | disposition home or self-care (01) ==
PROVIDERS: PCP Internal Medicine; Visit Provider Internal Medicine
DX: I10 Essential (primary) hypertension (principal)
CPT/HCPCS: 99213

== ENCOUNTER 2023-09-30 15:21 | Outpatient (AMB) | payer OTHER, SELFPAY ==
--- NOTE | 2023-09-30 15:23 | A.OFFVIS_ITS ---
Vital Signs 09/30/23 15:24 Height 5 ft 8 in Weight 187 lb 6.287 oz BMI 28.5 BP 120/70 Blood Pressure Location Lt brachial Position Sitting Pulse 74 Intake Visit Reasons: follow-up patient want sooner away for the summer Intake Note: Follow-up with ekg feelling good Clinical Product Specialist Required: No Allergies lisinopril Allergy (Unknown, Verified 09/09/23 14:16) face swelling Medication List - Last Reconciled 09/30/23 by Kyle Jacobo MD amlodipine 5 mg PO DAILY atorvastatin 20 mg PO DAILY dupilumab (Dupixent) 300 mg subcut Q2W HPI Comments Details: Manny comes for a more sooner appointment as he is planning to travel to [place] for many months. He continues to have no significant symptoms. Says has mild exertional shortness of breath but thinks this is related to some weight gain. Denies any exertional chest pain. Takes all his medications. His LDL is well optimized. He said his blood pressure at home is generally on the higher side although manage her blood pressure today is within normal limits. No reliable home monitoring of blood pressure at this point in time. [facility] Medical History Eczema Hypertension Surgical History H/O colonoscopy No pertinent past surgical history Family History Father Prostate cancer Mother Asthma Social History Housing: House Alcohol intake: never Patient Tobacco Use Status: Never used Tobacco e-Cigarette/Vaping Use: Never Used Second Hand Smoke Exposure: No service: No Current occupational status: retired Cognitive needs: No Hearing needs: No Vision needs: Yes Review of Systems Const Denies chills, Denies fatigue, Denies fever(s), Denies frequent falls, Denies weakness, Denies weight gain and Denies weight loss ENT Denies dizziness Card Denies chest pain, Denies leg edema, Denies lightheadedness, Denies palpitations, Denies dyspnea, Denies dyspnea on exertion, Denies orthopnea and Denies other (loss of consciousness) Resp Denies cough, Denies dyspnea and Denies dyspnea on exertion GI Denies hematochezia and Denies change in stool character Musc Denies abnormal gait, Denies muscle weakness, Denies numbness, Denies radiating pain into limb and Denies tingling Neuro Denies Abnormal speech present, Denies abnormal gait, Denies dizziness, Denies frequent falls, Denies numbness, Denies tingling and Denies weakness Endo Denies fatigue and Denies palpitations Physical Exam Vital Signs: Last Vital Signs Pulse 74 09/30/23 15:24 BP 120/70 09/30/23 15:24 BMI result Body Mass Index 28.5 Const General: cooperative, comfortable, no acute distress, well developed, alert, awake, Physically active and well groomed Nutritional Appearance: well nourished and overweight Orientation/consciousness: patient oriented x3 Limitations: no limitations Neck Neck: Yes trachea midline, Yes supple and Yes no JVD Resp Effort & Inspection: normal respiratory effort Auscultation: clear to auscultation bilaterally Cardio Jugular venous distension: no JVD Palpation: normal PMI Rate: regular rate Rhythm: regular rhythm Heart sounds: S1 normal heart sound present, S2 normal heart sound present, no click, no gallops, no murmurs and no rubs GI Auscultation: normal bowel sounds Neuro General: patient oriented x3 and no focal motor deficits Speech: No Abnormal speech present Psych Appearance: grossly normal Office Procedures EKG Details: EKG shows normal sinus rhythm with left bundle-branch block at 74 beats per minute [id number], Complete Assessment & Plan Assessment & Plan (1) CAD (coronary artery disease): Code(s): I25.10 - Atherosclerotic heart disease of [place] coronary artery without angina pectoris Category: Medical Plan: CAD based on coronary calcium score in the LAD and RCA territory on CT scan. C urrently having no symptoms suggestive of ischemia. No further workup is indicated at this point in time except for continued medical therapy. Continue aggressive vascular risk factor modification. LDL is well optimized on current statin therapy. Blood pressure seemed to be well optimized as well on current medications. Advised to monitor blood pressure manual check of blood pressure at home intermittently and maintain a log. Low-salt diet was discussed. Stress mitigation strategies was discussed as well. (2) Enlarged thoracic aorta: Code(s): I77.89 - Other specified disorders of arteries and arterioles Category: Medical Plan: Mildly enlarged thoracic aorta without any symptoms related to it. Follow-up echocardiogram in 4-5 months time to assess for size. Continue aggressive vascular risk factor modification above. Goal blood pressure less than 130/84 at all times. (3) Left bundle branch block: Code(s): I44.7 - Left bundle-branch block, unspecified Category: Medical Plan: Left bundle-branch block which is stable. No interventions required per se for the same. Follow-up echocardiogram as above as 1 in 6 patient can develop cardiomyopathy related to left bundle-branch block. Continue vascular risk factor modification. Will follow up in the clinic in 1 year's time, sooner p.r.n.. Thank you for allowing me to partake in his care Orders: Orders CA echo transthoracic complete 18 Weeks I77.89 - Other specified disorders of arteries and arterioles Coding Level of Care Code Est Pt Level 4 (23160) Diagnoses CAD (coronary artery disease) I25.10 Enlarged thoracic aorta I77.89 Left bundle branch block I44.7 CPT Codes EKG - CPT: 75039-[id number], Complete ([id number])
[2023-09-30 15:24] VITALS: BP 120/70; PULSE 74; BMI 28.5
== END 2023-09-30 15:54 | disposition home or self-care (01) ==
PROVIDERS: PCP Internal Medicine; Visit Provider Internal Medicine Cardiovascular Disease
DX: I25.10 Atherosclerotic heart disease of native coronary artery without angina pectoris (principal); I77.89 Other specified disorders of arteries and arterioles; I44.7 Left bundle-branch block, unspecified
CPT/HCPCS: 93010; 99214

== ENCOUNTER → 2023-09-30 15:21 | Outpatient (BNVA) | payer OTHER, SELFPAY | PROVIDERS: PCP Internal Medicine; Visit Provider Internal Medicine Cardiovascular Disease | DX: I25.10 Atherosclerotic heart disease of native coronary artery without angina pectoris (principal); I77.89 Other specified disorders of arteries and arterioles; I44.7 Left bundle-branch block, unspecified; Z79.899 Other long term (current) drug therapy | CPT/HCPCS: 93005 ==

== ENCOUNTER → 2024-02-14 14:45 | Outpatient (REF) | payer OTHER, SELFPAY ==
--- NOTE | 2024-02-14 14:48 | CA_ITS ---
Transthoracic Echocardiogram Patient (Last, First, Middle): Manny Granado, Gender: Male Date of : 1955 Age: 68 Procedure Date: 02/14/2024 Procedure Type: Transthoracic Echocardiogram Location: OP Height: 172. cm Weight: 80.74 kg BSA: 1.94 m2 Heart Rate: 66 bpm BP: 170 / 90 mmHg Housing Grant Analyst: NEERAJ Referring MD: Kyle Jacobo MD Symptoms: I77.89 - Other specified disorders of arteries and arterioles Study Quality: Adequate ECG Rhythm: Sinus Conclusions: - The left ventricular systolic function is normal. The calculated ejection fraction is 62% by biplane method. - No obvious valvular pathology seen on this study. - There is mild dilatation of the ascending aorta measuring 4.10 cm (but margins not clearly defined). Findings Left Ventricle Normal left ventricular cavity size. There is mildly increased left ventricular wall thickness. The left ventricular systolic function is normal. The calculated ejection fraction is 62% by biplane method. There is no evidence of regional wall motion abnormalities. There is paradoxical septal motion consistent with a left bundle branch block. Evidence suggests grade I (mild) diastolic dysfunction. LV peak GLS -14.4%. Right Ventricle Normal right ventricular cavity size and systolic function. Atria Both atria are normal in size. Aortic Valve There is a normal trileaflet aortic valve. There is mild calcification of the aortic valve. There is no aortic valve stenosis. There is trace (trivial) aortic valve regurgitation. Mitral Valve The mitral valve appears normal. There is no mitral valve regurgitation. There is no mitral valve stenosis. Pulmonic Valve The pulmonic valve is likely normal. Tricuspid Valve There is trace tricuspid valve regurgitation. There is no evidence of pulmonary hypertension. Great Vessels The aortic arch is normal in size. There is mild dilatation of the ascending aorta measuring 4.10 cm. Venous The inferior vena cava is normal in size and collapses greater than 50% with inspiration. Pericardium/Pleural There is no evidence of pericardial effusion. Prior Study Comparison Changes noted compared to prior study dated: 12/31/2022. change in ascending aortic size (could also be technical). Recommendations, Care & Conclusions No obvious valvular pathology seen on this study. Measurements 2D Linear Measurements IVSd: 1.34 0.6-0.9/0.6-1.0 cm LVIDd: 4.63 3.9-5.3/4.2-5.9 cm LVIDd Index: 2.39 2.4-3.2/2.2-3.1 cm/m2 LVIDs: 3.50 2.0-3.6 cm LVPWd: 1.23 0.7-1.1 cm LA Diam: 3.10 2.7-3.8/3.0-4.0 cm LAIDs Index: 1.60 1.5-2.3 cm/m2 LV Mass: 284.95 67-162/88-224 g LV Mass Index: 146.88 43-95/49-115 g/m2 LVOT Diam: 2.00 3.0+(-)1.3 cm 2D Systolic Function EF 4C: 50.40 >55% EF 2C: 70.70 >55% EF BiP: 61.80 >55% Mitral Valve MV Pk E: 0.80 MV PK A: 1.15 MV Decel Time: 280.00 E/A: 0.70 E'Lateral: 7.07 E'Medial: 4.46 E/E' Med: 18.00 E/E' Lat: 11.40 PHT: 82.00 MVA PHT: 2.68 Decel Rains: 2.88 Aortic Valve AoV Pk Robinson: 1.85 AoV Mn Robinson: 1.28 AoV VTI: 0.38 AoV Pk Grad: 14.00 Aov Mn Grad: 8.00 KOLBY Cont.VTI: 1.92 LVOT LVOT Pk Robinson: 1.21 LVOT Mn Robinson: 0.81 LVOT VTI: 0.23 LVOT Pk Grad: 6.00 LVOT Mn Grad: 3.00 LVOT Diam: 2.00 LVOT Area: 3.14 Diastolic Function MV Pk E: 0.80 MV Pk A: 1.15 E/A: 0.70 E'Medial: 4.46 E/E' Med: 18.00 E' Laterial: 7.07 E/E' Lat: 11.40 Right Ventricle TAPSE (mm): 25.80 TVS' Robinson: 10.10 Tricuspid Valve RA Press: 3.00 Great Vessels Aorta Sinus of Valsalva: 3.70 2.0-3.5 cm Ao Asc: 4.10 2.1-3.4 cm Ao Arch: 2.70 Pulmonary Valve PV Pk Robinson: 1.07 Peak PV Grad: 5.00 Updated in Other Vendor System with Status of Final Efra Villasenor MD electronically signed on 02/16/2024 10:59:32 AM with status of Final
== END ==
LOC: HO.CARD 14:45
PROVIDERS: PCP Internal Medicine; Visit Provider Internal Medicine Cardiovascular Disease
DX: I77.89 Other specified disorders of arteries and arterioles (principal)
CPT/HCPCS: 93306; 93356

== ENCOUNTER → 2024-02-14 14:48 | Outpatient (BNV) | payer OTHER, SELFPAY | PROVIDERS: PCP Internal Medicine; Visit Provider Internal Medicine | DX: I35.8 Other nonrheumatic aortic valve disorders (principal); I44.7 Left bundle-branch block, unspecified | CPT/HCPCS: 93306; 93356 ==

== ENCOUNTER 2024-02-19 13:54 | Outpatient (AMB) | payer OTHER, SELFPAY ==
[2024-02-19 13:57] VITALS: BP 162/84; PULSE 74; O2SAT 98; BMI 27.4
--- NOTE | 2024-02-19 13:57 | MHC.PC.OV ---
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 Accompanied by: Self / Same As Patient Allergies lisinopril Allergy (Unknown, Verified 02/19/24 14:03) face swelling amlodipine Adverse Reaction (Intermediate, Unverified 02/21/24 16:54) leg swelling Medication List - Last Reconciled 02/24/24 by Atif Cueto MD atorvastatin 20 mg PO DAILY dupilumab (Dupixent) 300 mg subcut Q2W metoprolol succinate ER 25 mg PO DAILY Tobacco use date assessed: 09/09/23 Fall risk assessment: No Falls in past year Last assessed Fall Risk: 02/19/24 Dental Screening Dental Screen Date: 09/09/23 HPI follow up HPI Details HTN on rx; BP has been high PFSH Medical History Eczema Hypertension Surgical History H/O colonoscopy No pertinent past surgical history Family History Father Prostate cancer Mother Asthma Social History Housing: House Alcohol intake: never Patient Tobacco Use Status: Never used Tobacco Tobacco use type: Cigarette e-Cigarette/Vaping Use: Never Used Second Hand Smoke Exposure: No service: No Current occupational status: retired Cognitive needs: No Hearing needs: No Vision needs: Yes Questionnaire PHQ-9 Over the last 2 weeks, how often have you been bothered by any of the following problems? 1. Little interest or pleasure in doing things: not at all 2. Feeling down, depressed, or hopeless: not at all 3. Trouble falling or staying asleep, or sleeping too much: not at all 4. Feeling tired or having little energy: not at all 5. Poor appetite or overeating: not at all 6. Feeling bad about yourself - or that you are a failure or have let yourself or your family down: not at all 7. Trouble concentrating on things, such as reading the newspaper or watching television: not at all 8. Moving or speaking so slowly that other people could have noticed. Or the opposite - being so fidgety or restless that you have been moving around a lot more than usual: not at all 9. Thoughts that you would be better off or of hurting yourself in some way: not at all Total score: 0 Depression Screening Interpretation: Negative Depression Screening Done: Yes 14537 - PHQ-9 Billing: Yes Source: Developed by Drs. Isaac Clark, Zena Larson, Carmelo Bah and colleagues, with an educational maggie from [employer]. Thrive Questionnaire Date Thrive assessed: 09/09/23 Are you currently unemployed and looking for a job?: No AUDIT C Alcohol Use Questionnaire (AUDIT-C) 1. How often do you have a drink containing alcohol?: Never Total Score: 0 Score Reviewed/Action Taken: Yes MARIBELL-7 AMB Questionnaire MARIBELL-7 Date MARIBELL - 7 assessed: 09/09/23 Source: Developed by Drs. Isaac Clark, Zena Larson, Carmelo Bah and colleagues, with an educational maggie from [employer]. Review of Systems Const Denies chills, Denies headache(s) and Denies weight loss ENT Denies headache(s) Card Denies chest pain, Denies syncope, Denies irregular heart rhythm and Denies dyspnea Resp Denies chest congestion, Denies cough and Denies dyspnea GI Denies abdominal pain, Denies change in stool character, Denies nausea and Denies vomiting Musc Denies deformity and Denies joint swelling Neuro Denies syncope and Denies headache(s) Physical exam (Primary Care) Vital Signs: Last Vital Signs Pulse 74 02/19/24 13:57 BP 162/84 H 02/19/24 13:57 Pulse Ox 98 02/19/24 13:57 Oxygen Delivery Method Room Air 02/19/24 13:57 BMI result Body Mass Index 27.4 Tobacco/Smoking Status: Tobacco use Status Tobacco use date assessed 09/09/23 02/19/24 14:03 Patient Tobacco Use Status Never used Tobacco 02/19/24 14:03 Tobacco use type Cigarette 02/19/24 14:03 e-Cigarette/Vaping Use Never Used 02/19/24 14:03 PHQ-9: PHQ-9 Score PHQ-9: Total score 0 02/19/24 16:26 Depression Screening Interpretation: Negative Thrive Assessment: Date of Thrive Assessment Date Thrive assessed 09/09/23 02/19/24 14:03 Const General: cooperative, comfortable, no acute distress and alert Neck Neck: Yes no lymphadenopathy Thyroid: Thyroid normal Resp Effort & Inspection: normal respiratory effort Auscultation: clear to auscultation bilaterally Percussion: percussion normal Cardio Jugular venous distension: no JVD Palpation: normal PMI Rate: regular rate Rhythm: regular rhythm Heart sounds: S1 normal heart sound present and S2 normal heart sound present GI Inspection: Yes normal to inspection Palpation (GI): No hepatosplenomegaly present Skin General skin exam: no rashes or lesions noted Extrem General: Yes no clubbing, cyanosis or edema Coding Level of Care Code Est Pt Level 3 (72971) Diagnoses Hypertension I10 Assessment & Plan Assessment & Plan (1) Hypertension: Code(s): I10 - Essential (primary) hypertension Category: Medical Plan: will adjust rx Medications: Refilled atorvastatin 20 mg PO DAILY 90 tabs 3RF
== END 2024-02-19 14:44 | disposition home or self-care (01) ==
PROVIDERS: PCP Internal Medicine; Visit Provider Internal Medicine
DX: I10 Essential (primary) hypertension (principal)

== ENCOUNTER → 2024-02-19 13:54 | Outpatient (BNVA) | payer OTHER, SELFPAY | PROVIDERS: PCP Internal Medicine; Visit Provider Internal Medicine ==

== ENCOUNTER 2024-05-11 11:20 | Outpatient (AMB) | payer OTHER, SELFPAY ==
--- OUTSIDE RECORDS SUMMARY | 2024-05-11 11:22 | XMS_ITS | Patient Health Record ---
Author Organization [facility] Address [address] [place] [address] Care Team Providers Care Human Resources Temp Name Role Phone Rom GAMEZ, Atif Primary Care Provider Isaac Mac Unavailable [phone] ALLERGIES No Known Allergies REASON FOR REFERRAL No Information MEDICATIONS Medication SIG (Take, Route, Frequency, Duration) Notes Start Date End Date Status Clenpiq 10-3.5-12 MG-GM -GM/160ML 5PM day before colonoscopy 1 160ml bottle then 5 8-ounce glasses clear liquids within 4 hours; morning of procedure 1 160ml bottle 5 hours before colonoscopy then 4 8-ounce glasses clear liquids within 2-3 hours-finish 2 hours before colonoscopy Orally Once for 2 days 02/15/2022 Active Dupixent 200 MG/1.14ML as directed Subcutaneous Active IMMUNIZATIONS Vaccine Route Administration Date Status Comme nts Influenza Unknown 01/24/2022 Refused SOCIAL HISTORY Tobacco Use: Social History Observation Description Date Details (start date - stop date) Never Smoker NA - NA Sex Assigned At : Social History Observation Description Sex Assigned At Unknown Tobacco Use/Smoking Question Answer Notes Patient is a nonsmoker Alcohol Screen Question Answer Notes Did you have a drink containing alcohol in the p ast year? No Points 0 Interpretation Negative PROBLEMS Problem Type ICD Code Onset Dates Problem Status W/U Status Risk SNOMED Code Notes Problem Colon cancer screening (Z12.11) Active confirmed Colon can cer screening (500677305) Problem Preprocedural examination (Z01.818) Active confirmed Preprocedural examination (061269960713044 ) Problem Change in bowel habits (R19.4) Active confirmed Change in bow el habit (46603796) Problem Diverticulosis of large intestine without perforation or abscess without bleeding (K57.30) Active confirmed Diverticul ar disease of colon (050076307) PLAN OF TREATMENT Pending Test Test Name Order Date CELIAC PANEL #10 01/24/2022 Future Test Test Name Order Date COLONOSCOPY 01/24/2022 Insurance Providers Payer Name Payer Address Payer Phone Subscriber Number Group Number Insured Name Patient Relationship to Insured Coverage Start Date Coverage End Date [facility] PROFESSIONAL CLAIMS [address] [place] [address] [id number] KALIA GUTIERRES Self - patient is the insured MEDICAL (GENERAL) HISTORY Medical History History ICD Code Eczema Negative colonoscopy June of [address] Chahal Denies [place],DM,CVA,Lung disease,renal dise ase Surgical History Surgery Date(Month/Year)
[2024-05-11 11:34] VITALS: BP 124/82; PULSE 74; O2SAT 98; BMI 28.6
--- NOTE | 2024-05-11 11:34 | A.OFFPC_ITS ---
Vital Signs 05/11/24 11:34 Height 5 ft 8 in Weight 188 lb 4 oz BMI 28.6 BP 124/82 Blood Pressure Location Lt brachial Position Sitting Pulse 74 Pulse Source Pulse Oximeter Pulse Oximetry (%) 98 Oxygen Delivery Method Room Air Intake Visit Reasons: two months f/u Allergies lisinopril Allergy (Unknown, Verified 05/11/24 11:36) face swelling amlodipine Adverse Reaction (Intermediate, Unverified 05/11/24 11:36) leg swelling Medication List - Last Reconciled 05/11/24 by Atif Cueto MD atorvastatin 20 mg PO DAILY dupilumab (Dupixent) 300 mg subcut Q2W metoprolol succinate ER 25 mg PO DAILY Tobacco use date assessed: 05/11/24 Fall risk assessment: No Falls in past year Last assessed Fall Risk: 05/11/24 Dental Screening Dental Screen Date: 05/11/24 Did you have a dental visit in the last 12 months?: Yes Did you have a dental problem in the last 6 months where you did not have access to dental care?: No Was dental information given to patient?: Patient has dentist HPI two months f/u HPI Details HTN on Rx; doing well; compliant PFSH Medical History Eczema Hypertension Surgical History H/O colonoscopy No pertinent past surgical history Family History Father Prostate cancer Mother Asthma Social History Housing: House Alcohol intake: never Patient Tobacco Use Status: Never used Tobacco Tobacco use type: Cigarette e-Cigarette/Vaping Use: Never Used Second Hand Smoke Exposure: No service: No Current occupational status: retired Cognitive needs: No Hearing needs: No Vision needs: Yes Questionnaire PHQ-9 Over the last 2 weeks, how often have you been bothered by any of the following problems? 1. Little interest or pleasure in doing things: not at all 2. Feeling down, depressed, or hopeless: not at all 3. Trouble falling or staying asleep, or sleeping too much: not at all 4. Feeling tired or having little energy: not at all 5. Poor appetite or overeating: not at all 6. Feeling bad about yourself - or that you are a failure or have let yourself or your family down: not at all 7. Trouble concentrating on things, such as reading the newspaper or watching television: not at all 8. Moving or speaking so slowly that other people could have noticed. Or the opposite - being so fidgety or restless that you have been moving around a lot more than usual: not at all 9. Thoughts that you would be better off or of hurting yourself in some way: not at all Total score: 0 Depression Screening Interpretation: Negative Depression Screening Done: Yes 03433 - PHQ-9 Billing: Yes Source: Developed by Drs. Isaac Clark, Zena Larson, Carmelo Bah and colleagues, with an educational maggie from [employer]. Thrive Questionnaire Date Thrive assessed: 05/11/24 I am a: Patient What is your living situation today?: I have a steady place to live Within the past 12 months, did the food you bought not last and you didn't have the money to get more?: Never true Within the past 12 months, did you worry whether your food would run out before you got money to buy more?: Never true Are you currently unemployed and looking for a job?: No THRIVE Score: 0 AUDIT C Alcohol Use Questionnaire (AUDIT-C) 1. How often do you have a drink containing alcohol?: Never 3. How often do you have six or more drinks on one occasion?: Never Total Score: 0 MARIBELL-7 AMB Questionnaire MARIBELL-7 Date MARIBELL - 7 assessed: 05/11/24 Feeling nervous, anxious, or on edge: 0 = Not at all Not being able to stop or control worryin = Not at all Worrying too much about different things: 0 = Not at all Trouble relaxin = Not at all Being so restless that it is hard to sit still: 0 = Not at all Becoming easily annoyed or irritable: 0 = Not at all Feeling afraid as if something awful might happen: 0 = Not at all Total MARIBELL-7 score (0-4 normal; 5-9 mild; 10-14 moderate; 15-21 severe): 0 Source: Developed by Drs. Isaac Clark, Carmelo Shin and colleagues, with an educational maggie from [employer]. MARIBELL-7 Assessment Billing MARIBELL-7 Assessment Tool: MARIBELL-7 Assessment 24981 Review of Systems Const Denies chills, Denies headache(s) and Denies weight loss ENT Denies headache(s) Card Denies chest pain, Denies syncope, Denies irregular heart rhythm and Denies dyspnea Resp Denies chest congestion, Denies cough and Denies dyspnea GI Denies abdominal pain, Denies change in stool character, Denies nausea and Denies vomiting Musc Denies deformity and Denies joint swelling Neuro Denies syncope and Denies headache(s) Physical exam (Primary Care) Vital Signs: Last Vital Signs Pulse 74 05/11/24 11:34 BP 124/82 05/11/24 11:34 Pulse Ox 98 05/11/24 11:34 Oxygen Delivery Method Room Air 05/11/24 11:34 BMI result Body Mass Index 28.6 Tobacco/Smoking Status: Tobacco use Status Tobacco use date assessed 05/11/24 05/11/24 11:38 Patient Tobacco Use Status Never used Tobacco 05/11/24 11:38 Tobacco use type Cigarette 05/11/24 11:38 e-Cigarette/Vaping Use Never Used 05/11/24 11:38 PHQ-9: PHQ-9 Score PHQ-9: Total score 0 05/11/24 11:38 Depression Screening Interpretation: Negative Thrive Assessment: Date of Thrive Assessment Date Thrive assessed 05/11/24 05/11/24 11:38 Const General: cooperative, comfortable, no acute distress and alert Neck Neck: Yes no lymphadenopathy Thyroid: Thyroid normal Resp Effort & Inspection: normal respiratory effort Auscultation: clear to auscultation bilaterally Percussion: percussion normal Cardio Jugular venous distension: no JVD Palpation: normal PMI Rate: regular rate Rhythm: regular rhythm Heart sounds: S1 normal heart sound present and S2 normal heart sound present GI Inspection: Yes normal to inspection Palpation (GI): No hepatosplenomegaly present Skin General skin exam: no rashes or lesions noted Extrem General: Yes no clubbing, cyanosis or edema Coding Level of Care Code Est Pt Level 3 (38187) Diagnoses Hypertension I10 Additional Codes MARIBELL-7 Assessment Billing - MARIBELL-7 Assessment Tool: MARIBELL-7 Assessment 00272 ([id number]) PHQ-9 - 29122 - PHQ-9 Billing: Yes ([id number]) Assessment & Plan Assessment & Plan (1) Hypertension: Code(s): I10 - Essential (primary) hypertension Category: Medical Plan: stable; same rx
== END 2024-05-11 12:01 | disposition home or self-care (01) ==
PROVIDERS: PCP Internal Medicine; Visit Provider Internal Medicine
DX: I10 Essential (primary) hypertension (principal)

== ENCOUNTER → 2024-05-11 11:20 | Outpatient (BNVA) | payer OTHER, SELFPAY | PROVIDERS: PCP Internal Medicine; Visit Provider Internal Medicine | DX: I10 Essential (primary) hypertension (principal) | CPT/HCPCS: 96127 ==

== ENCOUNTER 2024-09-29 14:40 | Outpatient (AMB) | payer MEDICARE, SELFPAY ==
[2024-09-29 14:42] VITALS: BP 124/80; PULSE 56; BMI 29.2
--- NOTE | 2024-09-29 14:42 | MHC.OFFVIS ---
Vital Signs 09/29/24 14:42 Height 5 ft 8 in Weight 191 lb 12.835 oz BMI 29.2 BP 124/80 Blood Pressure Location Lt brachial Position Sitting Pulse 56 Intake Visit Reasons: 1 yr f/up Intake Note: 1 year follow-up with ekg feeling good Pot Tender Required: No Buckle Attacher: Buckle Attacher Present Accompanied by: Spouse Allergies lisinopril Allergy (Unknown, Verified 05/11/24 11:36) face swelling amlodipine Adverse Reaction (Intermediate, Unverified 05/11/24 11:36) leg swelling Medication List - Last Reconciled 09/29/24 by Kyle Jacobo MD atorvastatin 20 mg PO DAILY dupilumab (Dupixent) 300 mg subcut Q2W metoprolol succinate ER 25 mg PO DAILY HPI Comments Details: Manny comes for follow-up. Patient has put on some weight around his mid drip. He said when he gets into bed he gets short of breath. However he said he goes for long walks and has no exertional shortness of breath although does not exercise on a regular basis. Denies any orthopnea, PND, leg edema. Denies any exertional chest pain. Takes all his medications. Echocardiogram done last January showed normal LV ejection fraction with mildly enlarged thoracic aorta. His LDL is extremely well optimized. PFSH Medical History Eczema Hypertension Surgical History H/O colonoscopy No pertinent past surgical history Family History Father Prostate cancer Mother Asthma Social History Housing: House Alcohol intake: never Patient Tobacco Use Status: Never used Tobacco Tobacco use type: Cigarette e-Cigarette/Vaping Use: Never Used Second Hand Smoke Exposure: No service: No Current occupational status: retired Cognitive needs: No Hearing needs: No Vision needs: Yes Review of Systems Const Denies chills, Denies fatigue, Denies fever(s), Denies frequent falls, Denies weakness, Denies weight gain and Denies weight loss ENT Denies dizziness Card Denies chest pain, Denies leg edema, Denies lightheadedness, Denies palpitations, Denies dyspnea, Denies dyspnea on exertion, Denies orthopnea and Denies other (loss of consciousness) Resp Denies cough, Denies dyspnea and Denies dyspnea on exertion GI Denies hematochezia and Denies change in stool character Musc Denies abnormal gait, Denies muscle weakness, Denies numbness, Denies radiating pain into limb and Denies tingling Neuro Denies Abnormal speech present, Denies abnormal gait, Denies dizziness, Denies frequent falls, Denies numbness, Denies tingling and Denies weakness Endo Denies fatigue and Denies palpitations Physical Exam Vital Signs: Last Vital Signs Pulse 56 09/29/24 14:42 BP 124/80 09/29/24 14:42 BMI result Body Mass Index 29.2 Const General: cooperative, comfortable, no acute distress, well developed, alert, awake, Physically active and well groomed Nutritional Appearance: well nourished and overweight Orientation/consciousness: patient oriented x3 Limitations: no limitations Neck Neck: Yes trachea midline, Yes supple and Yes no JVD Resp Effort & Inspection: normal respiratory effort Auscultation: clear to auscultation bilaterally Cardio Jugular venous distension: no JVD Palpation: normal PMI Rate: regular rate Rhythm: regular rhythm Heart sounds: S1 normal heart sound present, S2 normal heart sound present, no click, no gallops, no murmurs and no rubs GI Auscultation: normal bowel sounds Neuro General: patient oriented x3 and no focal motor deficits Speech: No Abnormal speech present Psych Appearance: grossly normal Office Procedures EKG Details: EKG shows normal sinus rhythm with left bundle-branch block 40516-Wlbvblyrfckheehoj, Complete Assessment & Plan Assessment & Plan (1) CAD (coronary artery disease): Code(s): I25.10 - Atherosclerotic heart disease of [place] coronary artery without angina pectoris Category: Medical Plan: Known increase currently calcium score suggestive of underlying coronary artery disease. No current active symptoms that needs further workup. Continue aggressive risk factor modification. Advise low-dose aspirin therapy. Continue statin therapy with very well optimized LDL this point time. Blood pressure is currently well optimized. Encouraged to participate in regular physical activity and increase his aerobic exercise capacity in weight loss program. He understands agrees. (2) Enlarged thoracic aorta: Code(s): I77.89 - Other specified disorders of arteries and arterioles Category: Medical Plan: Mildly enlarged thoracic aorta will be followed by echocardiogram initially on annual basis. Continue aggressive vascular risk factor modification as above. Advised to avoid sudden strenuous isometric exercise. (3) Left bundle branch block: Code(s): I44.7 - Left bundle-branch block, unspecified Category: Medical Plan: Left bundle-branch block which is chronic. LV ejection fraction has remained stable. No other symptoms. No interventions required. Will follow up in the clinic in 1 year's time, sooner p.r.n.. Thank you for allowing me to partake in his care Orders: Orders CA echo transthoracic complete 1 Year I77.89 - Other specified disorders of arteries and arterioles Medications: New aspirin (Ecotrin Low Strength) 81 mg PO DAILY 30 tabs 0RF Coding Level of Care Code Est Pt Level 4 (09259) Complex EM visit Add On G2211 Diagnoses CAD (coronary artery disease) I25.10 Enlarged thoracic aorta I77.89 Left bundle branch block I44.7 CPT Codes EKG - CPT: 32245-[id number], Complete ([id number])
--- OUTSIDE RECORDS SUMMARY | 2024-09-29 15:49 | XMS_ITS | Patient Health Record ---
Author Organization [facility] Address [address] [place] [address] Care Team Providers Care Foster Care Case Manager Name Role Phone Rom GAMEZ, Atif Primary Care Provider Isaac Mac Unavailable [phone] Allergies No Known Allergies Reason For Referral No Information Medications Medication SIG (Take, Route, Frequency, Duration) Notes [...] Dupixent 200 MG/1.14ML as directed Subcutaneous Active Immunizations Vaccine Route Administration Date Status Comme nts Influenza Unknown 01/24/2022 Refused Social History Tobacco Use: Social History Observation Description Date Details (start date - stop date) Never Smoker NA - NA Tobacco Use/Smoking Question Answer Notes Patient is a nonsmoker Alcohol Screen Question Answer Notes Did you have a drink containing alcohol in the p ast year? No Points 0 Interpretation Negative Section Notes: Nonsmoker; no sig alcohol Problems Problem Type SNOMED Code ICD Code Onset Dates Problem Status W/U Status Risk Notes Problem Colon cancer screening (783943851) Colon cancer screening (Z12.11) Active confirmed Problem Change in bowel habit (27151724) Change in bowel habits (R19.4) Active confirmed Problem Diverticulosis o f large intestine without perforation or abscess without bleeding (K57.30) Active confirmed Problem Preprocedural examination (153080782013514) Preprocedural examination (Z01.818) Active confirmed Plan Of Treatment Pending Test Test Name Order Date CELIAC PANEL #10 01/24/2022 Future Test Test Name Order Date COLONOSCOPY 01/24/2022 Insurance Providers Payer Name Payer Address Payer Phone Subscriber Number Group Number Insured Name Patient Relationship to Insured Coverage Start Date Coverage End Date [facility] [address] [place] [address] [id number] KALIA GUTIERRES Self - patient is the insured Medical (General) History Medical History History ICD Code Eczema Negative colonoscopy June of [address] Chahal Denies [place],DM,CVA,Lung disease,renal dise ase Surgical History Surgery Date(Month/Year)
== END 2024-09-29 15:22 | disposition home or self-care (01) ==
PROVIDERS: PCP Internal Medicine; Visit Provider Internal Medicine Cardiovascular Disease
DX: I25.10 Atherosclerotic heart disease of native coronary artery without angina pectoris (principal); I77.89 Other specified disorders of arteries and arterioles; I44.7 Left bundle-branch block, unspecified
CPT/HCPCS: 93010; 99214; G2211

== ENCOUNTER → 2024-09-29 14:40 | Outpatient (BNVA) | payer MEDICARE, SELFPAY | PROVIDERS: PCP Internal Medicine; Visit Provider Internal Medicine Cardiovascular Disease | DX: I25.10 Atherosclerotic heart disease of native coronary artery without angina pectoris (principal); I77.89 Other specified disorders of arteries and arterioles; I44.7 Left bundle-branch block, unspecified | CPT/HCPCS: 93005; 99212 ==

== ENCOUNTER 2024-10-16 09:44 | Outpatient (AMB) | payer MEDICARE, SELFPAY ==
--- NOTE | 2024-10-16 09:47 | MHC.PC.OV ---
Vital Signs 10/16/24 09:48 Height 5 ft 8 in Weight 192 lb 6 oz BMI 29.2 BP 140/72 H Blood Pressure Location Lt brachial Position Sitting Pulse 68 Pulse Source Pulse Oximeter Temp 97.3 F Temp Source Temporal Artery Scan Pulse Oximetry (%) 98 Oxygen Delivery Method Room Air Intake Visit Reasons: APPLE Dr Cueto Intake Note: Patient is here today for APPLE from Dr Cueto Behavioral Assistant Required: No Psych Nurse: Not Required per policy Accompanied by: Self / Same As Patient Allergies lisinopril Allergy (Unknown, Verified 10/16/24 10:12) face swelling amlodipine Adverse Reaction (Intermediate, Verified 10/16/24 10:12) leg swelling Medication List - Last Reconciled 10/16/24 by Anastasiya Mata PA-C aspirin (Ecotrin Low Strength) 81 mg PO DAILY atorvastatin 20 mg PO DAILY dupilumab (Dupixent) 300 mg subcut Q2W metoprolol succinate ER 25 mg PO DAILY Tobacco use date assessed: 10/16/24 Fall risk assessment: No Falls in past year Last assessed Fall Risk: 10/16/24 Dental Screening Dental Screen Date: 10/16/24 Did you have a dental visit in the last 12 months?: Yes Did you have a dental problem in the last 6 months where you did not have access to dental care?: No Was dental information given to patient?: Patient has dentist HPI APPLE Dr Cueto HPI Details 68-year-old male with past medical history of hypertension, hyperlipidemia, coronary artery disease and thoracic aorta enlargement last seen by Dr. Cueto 04/2024 coming in for transfer of care.?Patient was recently seen by Cardiology 09/2024 continue on statin and aspirin therapy and monitor enlarged thoracic aorta with annual echocardiogram. Presenting with elevated blood pressure. He has a history of Essential Hypertension and takes metoprolol 25 mg nightly. He experienced medication gaps due to pharmacy delays. He reports occasional dyspnea while at rest. It involves shortness of breath and mild mucus production, without associated strenuous activity. 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 Erectile Dysfunction has been managed with phosphodiesterase inhibitors, with Levitra yielding favorable results in the past. [facility] Medical History Eczema Hypertension Surgical History History of YAG laser iridotomy of both eyes H/O colonoscopy No pertinent past surgical history Family History Father Prostate cancer Mother Asthma Social History Housing: House Alcohol intake: never Patient Tobacco Use Status: Never used Tobacco Tobacco use type: Cigarette e-Cigarette/Vaping Use: Never Used Second Hand Smoke Exposure: No service: No Current occupational status: retired Cognitive needs: No Hearing needs: No Vision needs: Yes (Glasses) Questionnaire PHQ-9 Over the last 2 weeks, how often have you been bothered by any of the following problems? 1. Little interest or pleasure in doing things: not at all 2. Feeling down, depressed, or hopeless: not at all 3. Trouble falling or staying asleep, or sleeping too much: not at all 4. Feeling tired or having little energy: not at all 5. Poor appetite or overeating: not at all 6. Feeling bad about yourself - or that you are a failure or have let yourself or your family down: not at all 7. Trouble concentrating on things, such as reading the newspaper or watching television: not at all 8. Moving or speaking so slowly that other people could have noticed. Or the opposite - being so fidgety or restless that you have been moving around a lot more than usual: not at all 9. Thoughts that you would be better off or of hurting yourself in some way: not at all Total score: 0 Depression Screening Interpretation: Negative Depression Screening Done: Yes Source: Developed by Drs. Isaac Clark, Zena Larson, Carmelo Bah and colleagues, with an educational maggie from [employer]. Thrive Questionnaire Date Thrive assessed: 10/16/24 I am a: Patient What is your living situation today?: I have a steady place to live Within the past 12 months, did the food you bought not last and you didn't have the money to get more?: Never true Within the past 12 months, did you worry whether your food would run out before you got money to buy more?: Never true Do you have trouble paying for medicines?: No Do you have trouble getting transportation to medical appointments?: Yes Do you have trouble paying your heating and electricity bill?: No Do you have trouble taking care of your child, family member or friend?: No Do you have trouble with day-to-day activities such as bathing, preparing meals, shopping, managing finances, etc.?: No Are you currently unemployed and looking for a job?: No Are you interested in more education?: No Please select the resources that you would like help with: None Currently or been in a relationship where the following occur: No concerns reported THRIVE Score: 1 AUDIT C Alcohol Use Questionnaire (AUDIT-C) 1. How often do you have a drink containing alcohol?: Never Total Score: 0 MARIBELL-7 AMB Questionnaire MARIBELL-7 Date MARIBELL - 7 assessed: 10/16/24 Feeling nervous, anxious, or on edge: 0 = Not at all Not being able to stop or control worryin = Not at all Worrying too much about different things: 0 = Not at all Trouble relaxin = Not at all Being so restless that it is hard to sit still: 0 = Not at all Becoming easily annoyed or irritable: 0 = Not at all Feeling afraid as if something awful might happen: 0 = Not at all Total MARIBELL-7 score (0-4 normal; 5-9 mild; 10-14 moderate; 15-21 severe): 0 Source: Developed by Drs. Isaac Clark, Zena Larson, Carmelo Bah and colleagues, with an educational maggie from [employer]. MARIBELL-7 Assessment Billing MARIBELL-7 Assessment Tool: MARIBELL-7 Assessment 61361 Review of Systems Const Denies body aches, Denies chills, Denies fever(s), Denies headache(s) and Denies poor appetite Eyes Reports no additional complaints ENT Denies dysphagia, Denies dizziness, Denies headache(s) and Denies odynophagia Card Denies chest pain, Denies syncope, Denies edema, Denies irregular heart rhythm, Denies lightheadedness, Reports dyspnea and Denies dyspnea on exertion Resp Reports as per HPI, Denies cough, Denies hemoptysis, Reports dyspnea and Denies dyspnea on exertion GI Denies abdominal pain, Denies constipation, Denies dysphagia, Denies diarrhea, Denies nausea, Denies odynophagia and Denies vomiting Reports no additional complaints Musc Reports no additional complaints and Denies abnormal gait Skin/Breast Reports system reviewed and no additional complaints, except as documented Neuro Denies abnormal gait, Denies dizziness, Denies syncope and Denies headache(s) Psych Reports no additional complaints Physical exam (Primary Care) Vital Signs: Last Vital Signs Temp 97.3 F 10/16/24 09:48 Pulse 68 10/16/24 09:48 BP 140/72 H 10/16/24 09:48 Pulse Ox 98 10/16/24 09:48 Oxygen Delivery Method Room Air 10/16/24 09:48 BMI result Body Mass Index 29.2 Tobacco/Smoking Status: Tobacco use Status Tobacco use date assessed 10/16/24 10/16/24 09:55 Patient Tobacco Use Status Never used Tobacco 10/16/24 09:55 Tobacco use type Cigarette 10/16/24 09:55 e-Cigarette/Vaping Use Never Used 10/16/24 09:55 PHQ-9: PHQ-9 Score PHQ-9: Total score 0 10/16/24 09:55 Depression Screening Interpretation: Negative Thrive Assessment: Date of Thrive Assessment Date Thrive assessed 10/16/24 10/16/24 09:55 Currently or been in a relationship where the following occur: No concerns reported Const General: cooperative, healthy appearing, comfortable and no acute distress Orientation/consciousness: patient oriented x3 HENMT Head: Yes normocephalic Ears: hearing grossly normal bilaterally General nose exam: Normal external nose present Eyes General: appearance normal, both eyes and all related structures Conjunctivae: conjunctivae normal Neck Neck: Yes full ROM and Yes no lymphadenopathy Resp Effort & Inspection: normal respiratory effort Auscultation: clear to auscultation bilaterally, no crackles, no rales, no rhonchi and no wheezes Cardio Rate: regular rate Rhythm: regular rhythm Skin General skin exam: no rashes or lesions noted Neuro General: patient oriented x3 Gait exam (Neuro): Normal gait present Extrem General: Yes normal to inspection, Yes full ROM and No edema Psych Affect: normal affect Attitude: cooperative Insight: Good insight present (Psych) Judgement: Good judgement present (Psych) Coding Level of Care Code Est Pt Level 4 (08217) Diagnoses Enlarged thoracic aorta I77.89 CAD (coronary artery disease) I25.10 Hyperlipidemia E78.5 Hypertension I10 Shortness of breath R06.02 Overweight (BMI 25.0-29.9) E66.3 Erectile dysfunction N52.9 Additional Codes MARIBELL-7 Assessment Billing - MARIBELL-7 Assessment Tool: MARIBELL-7 Assessment 33306 ([id number]) Assessment & Plan Assessment & Plan (1) Enlarged thoracic aorta: Code(s): I77.89 - Other specified disorders of arteries and arterioles Category: Medical Plan: Patient recently had echocardiogram and was advised by Cardiology to have yearly echocardiograms going forward. Continue to follow with Cardiology. (2) CAD (coronary artery disease): Code(s): I25.10 - Atherosclerotic heart disease of [place] coronary artery without angina pectoris Category: Medical Plan: Advised good control of blood pressure, cholesterol and blood sugars. Currently on aspirin 81 mg and atorvastatin 20 mg. Losartan was added to medication regimen for better control of blood pressure. Continue to follow with cardiology yearly. (3) Hyperlipidemia: Code(s): E78.5 - Hyperlipidemia, unspecified Category: Medical Plan: Avoid foods that are high in cholesterol such as red meat, fried foods, eggs and baked goods. Triglyceride goal of less than 150 and LDL goal of less than 70. Continue on atorvastatin 20 (4) Hypertension: Code(s): I10 - Essential (primary) hypertension Category: Medical Plan: Continue on current blood pressure medication. Avoid salt intake and encourage healthy diet and regular exercise. Blood pressure elevated in the office today and elevated with home values as well plain due add losartan to medication regimen. Increasing metoprolol was considered however patient's pulse rate is typically in the 50s while at home and concern for possible bradycardia with increase in his medication. To follow up again in 6 weeks for further evaluation. Advised patient to continue to monitor the blood pressure at home and reach out if blood pressures do not improve. (5) Shortness of breath: Code(s): R06.02 - Shortness of breath Category: Medical Plan: Patient reporting occasional shortness of breath plan to obtain chest x-ray, pulmonary function testing and BNP for further evaluation. (6) Overweight (BMI 25.0-29.9): Code(s): E66.3 - Overweight Category: Medical Plan: Healthy diet and regular exercise is encouraged. (7) Erectile dysfunction: Code(s): N52.9 - Male erectile dysfunction, unspecified Category: Medical Plan: Plan to restart on Vardenifil as this has been helpful in the past for his ED. Discussed red flag symptoms and when to seek evaluation. Plan I addressed essential hypertension, occasional dyspnea, and erectile dysfunction during the visit. I resolved the medication supply issue and ensured long-term access to his antihypertensive agent. I advised diagnostic testing, including a chest X-ray and pulmonary function tests, to investigate dyspnea further. I prescribed vardenafil for erectile dysfunction, given the patient's favorable response, and recommended reducing caffeine intake to control blood pressure. Considering his current blood pressure management, I added losartan. I also suggested lifestyle adjustments, such as the use of apple cider vinegar and green tea extract, to aid weight management. Blood work, including PSA testing, has been ordered to update health metrics. A follow-up is scheduled in two months to review blood pressure control and lab results. This note was constructed using voice recognition software. While every effort has been made to ensure accuracy and online advertising manager, still areas may have been included sometimes these areas may affect the content or meeting of the given symptoms. Total time spent caring for the patient today was 30 minutes. This includes time spent before the visit reviewing the chart, time spent during the visit, and time spent after the visit and documentation. Patient was informed and verbally consented to the use of an ambient scribe for clinic note documentation during this visit. Orders: Orders TSH reflex Free T4 Today I25.10 - Atherosclerotic heart disease of [place] coronary artery without angina pectoris, Z00.00 - Encounter for general adult medical examination without abnormal findings Lipid Panel Today E78.00 - Pure hypercholesterolemia, unspecified, I25.10 - Atherosclerotic heart disease of [place] coronary artery without angina pectoris Vitamin B12 and Folate Today I25.10 - Atherosclerotic heart disease of [place] coronary artery without angina pectoris, Z13.21 - Encounter for screening for nutritional disorder PSA, Ultra Sensitive Today Z00.00 - Encounter for general adult medical examination without abnormal findings, Z12.5 - Encounter for screening for malignant neoplasm of prostate Hemoglobin A1c Today I25.10 - Atherosclerotic heart disease of [place] coronary artery without angina pectoris PFT pulmonary function test Today R06.02 - Shortness of breath XR chest 2V Today R06.02 - Shortness of breath Complete Blood Count Auto Diff Today I25.10 - Atherosclerotic heart disease of [place] coronary artery without angina pectoris, Z00.00 - Encounter for general adult medical examination without abnormal findings Comprehensive Met. Panel Today I25.10 - Atherosclerotic heart disease of [place] coronary artery without angina pectoris, Z00.00 - Encounter for general adult medical examination without abnormal findings Free T4 (Free Thyroxine) Today I25.10 - Atherosclerotic heart disease of [place] coronary artery without angina pectoris, Z00.00 - Encounter for general adult medical examination without abnormal findings Vitamin D 25-OH Total Today I25.10 - Atherosclerotic heart disease of [place] coronary artery without angina pectoris, Z00.00 - Encounter for general adult medical examination without abnormal findings B Type Natriuretic Peptide Today I25.10 - Atherosclerotic heart disease of [place] coronary artery without angina pectoris, R06.02 - Shortness of breath Medications: New vardenafil 10 mg PO DAILY PRN 14 tabs 0RF sexual activity losartan 25 mg PO DAILY 90 tabs 0RF Refilled atorvastatin 20 mg PO DAILY 90 tabs 3RF metoprolol succinate ER 25 mg PO DAILY 90 tabs 3RF I10 - Essential (primary) hypertension
[2024-10-16 09:48] VITALS: BP 140/72; PULSE 68; TEMP 36.3; O2SAT 98; BMI 29.2
--- OUTSIDE RECORDS SUMMARY | 2024-10-16 10:07 | XMS_ITS | Patient Health Record ---
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 Name Role Phone Rom GAMEZ, Atif Primary Care Provider Isaac Mac Unavailable [phone] Allergies No Known Allergies Reason For Referral [...] Status Risk Notes Problem Colon cancer screening (211216246) Colon cancer screening (Z12.11) Active confirmed Problem Change in bowel habit (64571400) Change in bowel habits (R19.4) Active confirmed Problem Diverticular disease of colon (293269860) Diverticulosis of large intestine without perforation or abscess without bleeding (K57.30) Active confirmed Problem Preprocedural examination (635825371487637) Preprocedural examination (Z01.818) Active confirmed Plan Of Treatment Pending Test Test Name Order Date CELIAC PANEL #10 01/24/2022 Future Test Test Name Order Date COLONOSCOPY 01/24/2022 Insurance Providers Payer Name Payer Address Payer Phone Subscriber Number Group Number Insured Name Patient Relationship to Insured Coverage Start Date Coverage End Date [facility] [id number] PROFESSIONAL CLAIMS [address] [place] [address] [id number] KALIA GUTIERRES Self - patient is the insured Medical (General) History Medical History History ICD Code Eczema Negative colonoscopy June of [address] Chahal Denies [place],DM,CVA,Lung disease,renal dise ase Surgical History Surgery Date(Month/Year)
== END 2024-10-16 10:39 | disposition home or self-care (01) ==
LOC: HO.HMCH 09:45
PROVIDERS: PCP Internal Medicine
DX: I77.89 Other specified disorders of arteries and arterioles (principal); I25.10 Atherosclerotic heart disease of native coronary artery without angina pectoris; E78.5 Hyperlipidemia, unspecified; I10 Essential (primary) hypertension; R06.02 Shortness of breath; E66.3 Overweight; N52.9 Male erectile dysfunction, unspecified

== ENCOUNTER → 2024-10-16 09:44 | Outpatient (BNVA) | payer MEDICARE, SELFPAY | PROVIDERS: PCP Internal Medicine | DX: I77.89 Other specified disorders of arteries and arterioles (principal); I25.10 Atherosclerotic heart disease of native coronary artery without angina pectoris; E78.5 Hyperlipidemia, unspecified; I10 Essential (primary) hypertension; R06.02 Shortness of breath; E66.3 Overweight; N52.9 Male erectile dysfunction, unspecified | CPT/HCPCS: 96127; 99212 ==

== ENCOUNTER 2024-11-11 10:26 | Outpatient (REF) | payer MEDICARE, SELFPAY ==
--- NOTE | ~2024-11-11 | XR_ITS ---
EXAMINATION: XR CHEST 2 VIEWS HISTORY: R06.02 - Shortness of breath COMPARISON: There are no prior studies available for comparison. FINDINGS: PA and lateral views of the chest are submitted. The lungs are expanded and clear. There is no pleural effusion, pneumothorax, or pulmonary vascular congestion. The heart is normal in size. The bones are intact. XR/XR chest 2V IMPRESSION: Clear lungs. Electronically signed by: Isaac Norris MD 11/11/2024 10:59 AM EDT
--- OUTSIDE RECORDS SUMMARY | 2024-11-11 12:13 | XMS_ITS | Patient Health Record ---
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 Name Role Phone Rom GAMEZ, Atif Primary Care Provider Isaac Mac Unavailable [phone] Allergies No Known Allergies Reason For Referral [...] Status Risk Notes Problem Colon cancer screening (930140990) Colon cancer screening (Z12.11) Active confirmed Problem Change in bowel habit (45196729) Change in bowel habits (R19.4) Active confirmed Problem Diverticulosis o f large intestine without perforation or abscess without bleeding (K57.30) Active confirmed Problem Preprocedural examination (165534769866777) Preprocedural examination (Z01.818) Active confirmed Plan Of Treatment Pending Test Test Name Order Date CELIAC PANEL #10 01/24/2022 Future Test Test Name Order Date COLONOSCOPY 01/24/2022 Insurance Providers Payer Name Payer Address Payer Phone Subscriber Number Group Number Insured Name Patient Relationship to Insured Coverage Start Date [facility]age End Date [facility] [address] [place] [address] [id number] KALIA GUTIERRES Self - patient is the insured Medical (General) History Medical History History ICD Code Eczema Negative colonoscopy June of [address] Chahal Denies PA,DM,CVA,Lung disease,renal dise ase Surgical History Surgery Date(Month/Year)
[2024-11-11 13:06] LABS: MANUAL DIFF FLAG NO
[2024-11-11 13:30] LABS: Basophils Percent Auto 0.5 % (0-2); Eosinophils Absolute Auto 0.1 X10*3/uL (0.0-0.4); Eosinophils Percent Auto 1.5 % (0-4); Hematocrit 42.3 % (42.0-52.0); Hemoglobin 14.4 g/dl (14.0-18.0); Imm Gran Abs Auto 0.01 X10*3/uL (0.00-0.03); Imm Gran Pct Auto 0.1 % (0.0-0.4); Lymphocytes Absolute Auto 2.3 X10*3/uL (1.2-4.9); Lymphocytes Percent Auto 30.5 % (20-40); Mean Corpuscular Hemoglobin 32.4 pg (27.0-33.0); Mean Corpuscular Volume 95.1 fL (80.0-98.0); Mean Platelet Volume 10.1 fL (9.4-12.4); Monocytes Absolute Auto 0.8 X10*3/uL (0.1-1.2); Monocytes Percent Auto 10.4 % (2-11); Neutrophils Absolute Auto 4.2 x10*3/uL (2.0-8.3); Platelet Count 236 X10*3/uL (160-400); Red Blood Count 4.45 X10*6/uL (4.60-5.80); Red Cell Distribution Width 11.9 % (11.0-16.0); White Blood Count 7.4 X10*3/uL (4.8-10.8)
[2024-11-11 13:46] LABS: B Type Natriuretic Peptide 12 pg/mL (<100); Estimated Average Glucose 108 mg/dL; Hemoglobin A1C 135.5404 umol/L; Hemoglobin A1c % 5.4 % (<6.0); Total Hemoglobin (HGBA1C) 3787.8047 umol/L
[2024-11-11 14:02] LABS: Alanine Aminotransferase 24 U/L (0-40); Albumin Level 4.1 g/dL (3.5-5.0); Alkaline Phosphatase 80 U/L (39-117); Anion Gap 10 (12-20); Aspartate Amino Transferase 26 U/L (5-37); Bilirubin Total 0.7 mg/dL (0.0-1.0); Blood Urea Nitrogen 11 mg/dL (9-16); Calcium 9.3 mg/dL (8.4-10.2); Carbon Dioxide 28 mmol/L (22-29); Chloride 107 mmol/L (96-108); Cholesterol 125 mg/dL (<200); Estimated Glomerular Filt Rate > 60; Free T4 (Free Thyroxine) 0.93 ng/dL (0.71-1.85); Glucose Random 93 mg/dL (60-115); HDL Cholesterol 39 mg/dL (>40); LDL Cholesterol Calculated 60 mg/dL (<100); Potassium 4.4 mmol/L (3.3-5.1); Sodium 141 mmol/L (135-145); TSH reflex Free T4 2.28 uIU/mL (0.32-4.0); Total Protein 6.5 g/dL (6.5-8.0); Triglycerides 132 mg/dL (<150); Vitamin D 25-OH Total 26.2 ng/mL (>30)
[2024-11-11 14:29] LABS: Folate 11.7 ng/mL (> or = 4.0); Vitamin B12 160 pg/mL (200-900)
[2024-11-17 22:33] LABS: PSA, Ultra Sensitive 0.56 ng/mL
== END 2024-11-11 10:27 | disposition home or self-care (01) ==
LOC: HO.10HDL 10:26
DX: E78.00 Pure hypercholesterolemia, unspecified (principal); R06.02 Shortness of breath; I25.10 Atherosclerotic heart disease of native coronary artery without angina pectoris; Z00.00 Encounter for general adult medical examination without abnormal findings; Z12.5 Encounter for screening for malignant neoplasm of prostate; Z13.21 Encounter for screening for nutritional disorder
CPT/HCPCS: 36415; 71046; 80053; 80061; 82306; 82607; 82746; 83036; 83880; 84153; 84439; 84443; 85025

== ENCOUNTER → 2024-11-11 10:37 | Outpatient (BNV) | payer MEDICARE, SELFPAY | PROVIDERS: Visit Provider Radiology Diagnostic Radiology | DX: R06.02 Shortness of breath (principal) | CPT/HCPCS: 71046 ==

== ENCOUNTER 2024-12-16 15:15 | Outpatient (AMB) | payer MEDICARE, SELFPAY ==
--- NOTE | 2024-12-16 15:18 | MHC.PC.OV ---
Vital Signs 12/16/24 15:19 12/16/24 15:43 Height 5 ft 8 in Weight 192 lb 6 oz BMI 29.2 BP 138/66 132/70 Blood Pressure Location Lt brachial Lt brachial Position Sitting Sitting Pulse 63 Pulse Source Pulse Oximeter Temp 97.2 F Temp Source Temporal Artery Scan Pulse Oximetry (%) 97 Oxygen Delivery Method Room Air Intake Visit Reasons: 2 month follow up Last Ironer Required: No Accompanied by: Self / Same As Patient Allergies lisinopril Allergy (Unknown, Verified 12/16/24 15:19) face swelling amlodipine Adverse Reaction (Intermediate, Verified 12/16/24 15:19) leg swelling Medication List - Last Reconciled 12/16/24 by Anastasiya Mata PA-C aspirin (Ecotrin Low Strength) 81 mg PO DAILY atorvastatin 20 mg PO DAILY dupilumab (Dupixent) 300 mg subcut Q2W losartan 25 mg PO DAILY metoprolol succinate ER 25 mg PO DAILY vardenafil 10 mg PO DAILY PRN Tobacco use date assessed: 10/16/24 Fall risk assessment: No Falls in past year Last assessed Fall Risk: 12/16/24 Dental Screening Dental Screen Date: 12/16/24 Did you have a dental visit in the last 12 months?: Yes Did you have a dental problem in the last 6 months where you did not have access to dental care?: No Was dental information given to patient?: No HPI 2 month follow up HPI Details 68-year-old male with past medical history of hypertension, hyperlipidemia, coronary artery disease and thoracic aorta enlargement last seen 09/2024 coming in for follow up. At his last visit losartan was added to medication regimen for blood pressure control. Presenting with a routine follow-up for chronic conditions and preventative care. The patient reports variable blood pressure readings at home, with occasional high systolic readings reaching 160 mmHg. He attributes this to his weight and dietary habits. He uses a home sphygmomanometer but questions its accuracy. The patient has experienced a return of acid indigestion after 40 years, which he believes is related to weight gain. He is working on weight management to alleviate symptoms. The patient had a severe episode of sciatica several years ago, which resolved spontaneously. He now experiences numbness in the bottom of his foot, which has been stable for five years. The patient reports numbness in the bottom of his foot, which has been stable for five years. He denies any worsening or significant impact on daily activities. PFSH Medical History Eczema Hypertension Surgical History History of YAG laser iridotomy of both eyes H/O colonoscopy No pertinent past surgical history Family History Father Prostate cancer Mother Asthma Social History Housing: House Alcohol intake: never Patient Tobacco Use Status: Never used Tobacco Tobacco use type: Cigarette e-Cigarette/Vaping Use: Never Used Second Hand Smoke Exposure: No service: No Current occupational status: retired Cognitive needs: No Hearing needs: No Vision needs: Yes (Glasses) Questionnaire Thrive Questionnaire Date Thrive assessed: 12/16/24 I am a: Patient What is your living situation today?: I have a steady place to live Within the past 12 months, did the food you bought not last and you didn't have the money to get more?: Never true Within the past 12 months, did you worry whether your food would run out before you got money to buy more?: Never true Do you have trouble paying for medicines?: No Do you have trouble getting transportation to medical appointments?: Yes Do you have trouble paying your heating and electricity bill?: No Do you have trouble taking care of your child, family member or friend?: No Do you have trouble with day-to-day activities such as bathing, preparing meals, shopping, managing finances, etc.?: No Are you currently unemployed and looking for a job?: No Are you interested in more education?: No Please select the resources that you would like help with: None Currently or been in a relationship where the following occur: No concerns reported THRIVE Score: 1 MARIBELL-7 AMB Questionnaire MARIBELL-7 Date MARIBELL - 7 assessed: 12/16/24 Source: Developed by Drs. Isaac Clark, Zena Larson, Carmelo Bah and colleagues, with an educational maggie from [employer]. Review of Systems Const Denies body aches, Denies chills, Denies fever(s), Denies headache(s) and Denies poor appetite Eyes Reports no additional complaints ENT Denies dizziness and Denies headache(s) Card Denies chest pain, Denies lightheadedness and Denies dyspnea Resp Denies dyspnea GI Denies nausea and Denies vomiting Musc Reports no additional complaints and Denies abnormal gait Skin/Breast Reports system reviewed and no additional complaints, except as documented Neuro Denies abnormal gait, Denies dizziness and Denies headache(s) Psych Reports no additional complaints Physical exam (Primary Care) Vital Signs: Last Vital Signs Temp 97.2 F 12/16/24 15:19 Pulse 63 12/16/24 15:19 BP 138/66 12/16/24 15:19 Pulse Ox 97 12/16/24 15:19 Oxygen Delivery Method Room Air 12/16/24 15:19 BMI result Body Mass Index 29.2 Tobacco/Smoking Status: Tobacco use Status Tobacco use date assessed 10/16/24 12/16/24 15:25 Patient Tobacco Use Status Never used Tobacco 12/16/24 15:25 Tobacco use type Cigarette 12/16/24 15:25 e-Cigarette/Vaping Use Never Used 12/16/24 15:25 Thrive Assessment: Date of Thrive Assessment Date Thrive assessed 12/16/24 12/16/24 15:25 Currently or been in a relationship where the following occur: No concerns reported Const General: cooperative, healthy appearing, comfortable and no acute distress Orientation/consciousness: patient oriented x3 HENMT Head: Yes normocephalic Ears: hearing grossly normal bilaterally General nose exam: Normal external nose present Eyes General: appearance normal, both eyes and all related structures Conjunctivae: conjunctivae normal Neck Neck: Yes full ROM and Yes no lymphadenopathy Resp Effort & Inspection: normal respiratory effort Auscultation: clear to auscultation bilaterally, no crackles, no rales, no rhonchi and no wheezes Cardio Rate: regular rate Rhythm: regular rhythm Skin General skin exam: no rashes or lesions noted Neuro General: patient oriented x3 Gait exam (Neuro): Normal gait present Extrem General: Yes normal to inspection, Yes full ROM and No edema Psych Affect: normal affect Attitude: cooperative Insight: Good insight present (Psych) Judgement: Good judgement present (Psych) Coding Level of Care Code Est Pt Level 3 (23615) Diagnoses CAD (coronary artery disease) I25.10 Hyperlipidemia E78.5 Hypertension I10 Shortness of breath R06.02 Overweight (BMI 25.0-29.9) E66.3 Numbness of right foot R20.0 Vitamin B12 deficiency E53.8 Vitamin D deficiency E55.9 Assessment & Plan Assessment & Plan (1) CAD (coronary artery disease): Code(s): I25.10 - Atherosclerotic heart disease of [place] coronary artery without angina pectoris Category: Medical Plan: Advised good control of blood pressure, cholesterol and blood sugars. Currently on aspirin 81 mg and atorvastatin 20 mg. Losartan was added to medication regimen for better control of blood pressure. Continue to follow with cardiology yearly. (2) Hyperlipidemia: Code(s): E78.5 - Hyperlipidemia, unspecified Category: Medical Plan: Avoid foods that are high in cholesterol such as red meat, fried foods, eggs and baked goods. Triglyceride goal of less than 150 and LDL goal of less than 70. Continue on atorvastatin 20 (3) Hypertension: Code(s): I10 - Essential (primary) hypertension Category: Medical Plan: Continue on current blood pressure medication. Avoid salt intake and encourage healthy diet and regular exercise. Blood pressure at goal today 132/70 with the recent addition of losartan. He will continue to monitor the blood pressure at home and follow up in 6 months or sooner if blood pressures exceed his goal of less than 140/90. (4) Shortness of breath: Code(s): R06.02 - Shortness of breath Category: Medical Plan: BNP and chest x-ray were negative at last visit. Awaiting PFT (5) Overweight (BMI 25.0-29.9): Code(s): E66.3 - Overweight Category: Medical Plan: Healthy diet and regular exercise is encouraged. (6) Numbness of right foot: Code(s): R20.0 - Anesthesia of skin Category: Medical Plan: Patient reports a numbness sensation on half of the right foot after a incident of sciatica 5 years ago. The numbness has not been worsening or changing over the last 5 years and denies any other associated symptoms of pain, tingling or increase falls/balance issues. I did offer an EMG which was declined. Plan to continue to monitor at this time (7) Vitamin B12 deficiency: Code(s): E53.8 - Deficiency of other specified B group vitamins Category: Medical Plan: Recommended supplementation. Patient states he will get this [id number]. (8) Vitamin D deficiency: Code(s): E55.9 - Vitamin D deficiency, unspecified Category: Medical Plan: See above Plan The patient will continue to monitor his blood pressure at home and bring his device to the next visit for comparison. Dietary modifications are recommended to address vitamin deficiencies, including increasing the intake of leafy greens and considering a multivitamin supplement. The patient is encouraged to maintain his current exercise regimen, including walking and cycling, and to consider yoga for improved flexibility. The patient is advised to continue monitoring his foot numbness and report any changes or worsening symptoms. A pulmonary function test is pending to evaluate shortness of breath. This note was constructed using voice recognition software. While every effort has been made to ensure accuracy and forest logistics manager, still areas may have been included sometimes these areas may affect the content or meeting of the given symptoms. Total time spent caring for the patient today was 20 minutes. This includes time spent before the visit reviewing the chart, time spent during the visit, and time spent after the visit and documentation. Patient was informed and verbally consented to the use of an ambient scribe for clinic note documentation during this visit.
[2024-12-16 15:19] VITALS: BP 138/66; PULSE 63; TEMP 36.2; O2SAT 97; BMI 29.2
[2024-12-16 15:43] VITALS: BP 132/70
--- OUTSIDE RECORDS SUMMARY | 2024-12-16 15:58 | XMS_ITS | Patient Health Record ---
Author Organization [facility] Address [address] [place] [address] Care Team Providers Care Delphi Programmer Name Role Phone Rom GAMEZ, Atif Primary Care Provider Isaac Mac Unavailable [phone] Allergies No Known Allergies Reason For Referral [...] Status Risk Notes Problem Colon cancer screening (821786394) Colon cancer screening (Z12.11) Active confirmed Problem Change in bowel habit (84411265) Change in bowel habits (R19.4) Active confirmed Problem Diverticulosis o f large intestine without perforation or abscess without bleeding (K57.30) Active confirmed Problem Preprocedural examination (824522761059722) Preprocedural examination (Z01.818) Active confirmed Plan Of Treatment Pending Test Test Name Order Date CELIAC PANEL #10 01/24/2022 Future Test Test Name Order Date COLONOSCOPY 01/24/2022 Insurance Providers Payer Name Payer Address Payer Phone Subscriber Number Group Number Insured Name Patient Relationship to Insured Coverage Start Date Coverage End Date [facility] [employer] [employer] [employer] [address] [place] [address] [id number] KALIA GUTIERRES Self - patient is the insured Medical (General) History Medical History History ICD Code Eczema Negative colonoscopy June of [address] Chahal Denies [place],DM,CVA,Lung disease,renal dise ase Surgical History Surgery Date(Month/Year)
== END 2024-12-16 16:04 | disposition home or self-care (01) ==
LOC: HO.HMCH 15:15
PROVIDERS: PCP Internal Medicine
DX: I25.10 Atherosclerotic heart disease of native coronary artery without angina pectoris (principal); E78.5 Hyperlipidemia, unspecified; I10 Essential (primary) hypertension; R06.02 Shortness of breath; E66.3 Overweight; R20.0 Anesthesia of skin; E53.8 Deficiency of other specified B group vitamins; E55.9 Vitamin D deficiency, unspecified

== ENCOUNTER → 2024-12-16 15:15 | Outpatient (BNVA) | payer MEDICARE, SELFPAY | PROVIDERS: PCP Internal Medicine | DX: I25.10 Atherosclerotic heart disease of native coronary artery without angina pectoris (principal); E78.5 Hyperlipidemia, unspecified; I10 Essential (primary) hypertension; R06.02 Shortness of breath; E66.3 Overweight; R20.0 Anesthesia of skin; E53.8 Deficiency of other specified B group vitamins; E55.9 Vitamin D deficiency, unspecified | CPT/HCPCS: 99212 ==

== ENCOUNTER 2025-01-01 12:29 | Outpatient (REF) | payer MEDICARE, SELFPAY ==
--- NOTE | 2025-01-01 12:56 | PFT_ITS ---
Flows: FEV1: 101 % of predicted at 2.61 L FVC: 116 % of predicted at 3.88 L FEV1/FVC: 67 % Bronchodilator response: Present Volumes: Total lung capacity: 97 % of predicted at 5.54 L Residual volume: 82 % of predicted at 1.79 L Slow vital capacity: 107 % of predicted at 3.75 L Expiratory reserve volume: 45 % of predicted at 0.40 L Diffusion capacity: Normal Impression: Mild obstructive ventilatory defect with positive bronchodilator response. Decreased expiratory reserve volume suggests extrathoracic restriction likely secondary to abdominal obesity. MTDD
[2025-01-01 13:34] VITALS: PULSE 57; O2SAT 98
== END 2025-01-01 12:30 | disposition home or self-care (01) ==
LOC: HO.RESP 12:29
DX: R06.02 Shortness of breath (principal)
CPT/HCPCS: 94010; 94640; 94727; 94729

== ENCOUNTER → 2025-01-01 12:56 | Outpatient (BNV) | payer MEDICARE, SELFPAY | PROVIDERS: Visit Provider Internal Medicine Pulmonary Disease | DX: R06.00 Dyspnea, unspecified (principal) | CPT/HCPCS: 94060 ==